=== PATIENT | male | born 1995 | race African-American/Black ===

== ENCOUNTER 2019-11-16 13:29 | Outpatient (CLI) | payer OTHER, SELFPAY ==
--- NOTE | ~2019-11-16 | US_ITS ---
EXAMINATION: US right upper quadrant DATE: 11/16/2019 15:01 INDICATION: Abnormal liver function tests. TECHNIQUE: Multiple grayscale and Doppler ultrasound images of the abdomen were obtained. COMPARISON: None FINDINGS: The visualized portions of the head and body of the pancreas are normal. There is diffuse h epatic steatosis. No liver surface nodularity. There is normal flow in main portal vein. The gallblad paul is normal in size. No gallstones or gallbladder wall thickening. There was no sonographic Lowery sign. The common duct is normal and measures 3 mm. IMPRESSION: 1. Diffuse hepatic steatosis. Reviewed, dictated and finalized at location A.
--- NOTE | ~2019-11-16 | XR_ITS ---
EXAMINATION: XR chest 2V DATE: 11/16/2019 14:00 INDICATION: Tobacco use. TECHNIQUE: Frontal and lateral views of the chest were obtained. COMPARISON: None. FINDINGS: The chest demonstrates clear lungs without pneumonia, pleural effusion, or pneumothorax. Th e heart size is normal. IMPRESSION: 1. No acute cardiopulmonary disease. Reviewed, dictated and finalized at location A.
== END 2019-11-16 13:30 | disposition home or self-care (01) ==
LOC: ANHIMG 13:34
PROVIDERS: PCP Emergency Medicine; Visit Provider Emergency Medicine
DX: R94.5 Abnormal results of liver function studies (principal); Z72.0 Tobacco use
CPT/HCPCS: 71046; 76705

== ENCOUNTER 2022-03-03 10:54 | Outpatient (CLI) | payer OTHER, SELFPAY ==
--- NOTE | ~2022-03-03 | XR_ITS ---
EXAM: XR soft tissue neck DATE: 03/03/2022 11:30 HISTORY: LOWER THROAT FEEL SOMETHING STUCK LEFT SIDE BLACKMAN APPLE . COMPARISON: None available. FINDINGS: Visualized cervical spine normal, without prevertebral soft tissue swelling. Airway is pat ent. No radiopaque foreign body. Normal hilar bone and thyroid cartilage. Normal epiglottis. IMPRESSION: Normal neck soft tissue radiograph findings. Reviewed, dictated and finalized at location K.
[2022-03-03 12:24] LABS: Hematocrit 44.2 % (42.0-52.0); Hemoglobin 14.8 g/dL (14.0-18.0); Mean Corpuscular HGB Conc 33.5 g/dl (32-36); Mean Corpuscular Hemoglobin 30.6 pg (26-34); Mean Corpuscular Volume 91.5 fl (80-100); Mean Platelet Volume 10.8 fl (7.4-10.4); Platelet Count Result 175 k/mm3 (150-375); Red Blood Count 4.83 M/mm3 (4.6-6.20); Red Cell Distribution Width 13.2 % (11.5-14.5); White Blood Count 5.5 K/mm3 (4.5-10.0)
[2022-03-03 12:43] LABS: Alanine Aminotransferase 114 U/L (6-50); Alkaline Phosphatase 57 U/L (38-126); Anion Gap 13 mmol/L (8-16); Aspartate Amino Transferase 51 U/L (17-59); Bilirubin,Total 0.4 mg/dL (0.2-1.3); Blood Urea Nitrogen 12 mg/dL (9-20); Calcium 8.7 mg/dL (8.4-10.2); Carbon Dioxide 20 mmol/L (22-30); Chloride 107 mmol/L (98-107); Cholesterol 170 mg/dL (0-200); Estimated Glomerular Filt Rate > 60; Glucose 117 mg/dL (65-110); HDL Direct 42 mg/dL; Potassium 4.2 mmol/L (3.4-5.0); Sodium 140 mmol/L (137-145); Triglycerides 59 mg/dL (<150)
[2022-03-03 12:54] LABS: LDL Cholesterol Direct 109 mg/dL
[2022-03-03 13:03] LABS: Hemoglobin A1C 5.5 % (<5.7)
[2022-03-03 13:26] LABS: Free T4 Free Thyroxine 1.03 ng/mL (0.78-2.19); Vitamin D 25 Hydroxy 33.7 ng/mL
[2022-03-03 13:38] LABS: Hepatitis B Surface Antigen Negative (Negative)
[2022-03-03 13:44] LABS: HAV RESULT Negative (Negative); Hepatitis B Core IgM Result Negative (Negative)
[2022-03-03 13:56] LABS: Hepatitis C Virus Antibody Negative (Negative)
[2022-03-03 14:02] LABS: Microalbumin Urine Random < 6.0 mg/L (0-16.7)
[2022-03-03 14:03] LABS: MALB Creatinine Ratio < 3.9 mg/g (0-30)
== END 2022-03-03 10:55 | disposition home or self-care (01) ==
PROVIDERS: PCP Emergency Medicine; Visit Provider Emergency Medicine
DX: J02.9 Acute pharyngitis, unspecified (principal); R09.89 Other specified symptoms and signs involving the circulatory and respiratory systems; F32.9 Major depressive disorder, single episode, unspecified; K76.0 Fatty (change of) liver, not elsewhere classified; E66.9 Obesity, unspecified; E78.5 Hyperlipidemia, unspecified; Z00.00 Encounter for general adult medical examination without abnormal findings
CPT/HCPCS: 36415; 70360; 80053; 80061; 80074; 82043; 82306; 82785; 83036; 84439; 84443; 85027; 86003

== ENCOUNTER 2022-03-20 11:05 | Outpatient (CLI) | payer OTHER, SELFPAY ==
--- NOTE | ~2022-03-20 | US_ITS ---
US abdomen limited INDICATION: Fatty liver. PROCEDURE: Realtime right upper abdominal ultrasound. COMPARISON: No prior studies for comparison. FINDINGS: The pancreas is normal without focal mass or pancreatic ductal dilation. Liver echotexture is increased, consistent with fatty infiltration. There is normal directional flow in the portal ve in. The gallbladder is normal without stones, gallbladder wall thickening or pericholecystic fluid. Comm on bile duct measures 3 mm. No sonographic Lowery's sign. IMPRESSION: 1: Hepatic steatosis. Reviewed, dictated and finalized at location A. IMPRESSION: 1: Hepatic steatosis.
== END 2022-03-20 11:06 | disposition home or self-care (01) ==
PROVIDERS: PCP Emergency Medicine; Visit Provider Emergency Medicine
DX: K76.0 Fatty (change of) liver, not elsewhere classified (principal)
CPT/HCPCS: 76705

== ENCOUNTER 2025-05-16 20:24 | Inpatient (IN) | payer SELFPAY ==
--- NOTE | ~2025-05-16 | CT_ITS ---
CTA chest PE abdomen pel HISTORY:tachycardia, tachypnea . COMPARISON: None. TECHNIQUE: Following the noncontrasted claims account manager, axial images of the thorax were obtained following infusion of 100 cc of Isovue 370. Post-processing on an independent workstation was performed to reconstruct MIP images for evaluation of the thoracic vasculature. FINDINGS: Evaluation for pulmonary emboli are limited due to poor timing bolus. There is no aortic dissection, thoracic aneurysm or pericardial fluid. The lung parenchyma is clear. No pleural effusion or pneumothorax is noted. There is no axillary, mediastinal or hilar adenopathy. There is thickening of the esophageal wall. Reflux is noted. Review of bone windows demonstrates no osteoblastic or lytic lesions. IMPRESSION: There is aortic dissection, pericardial fluid or thoracic aneurysm. No acute lung findings. Evaluation for pulmonary emboli are limited due to inadequate opacification of the pulmonary arteries. CT abdomen pel INDICATION:tachycardia, tachypnea . COMPARISON: None. TECHNIQUE: Axial images of the abdomen and pelvis were obtained following infusion of 100 mL Isovue 370. Dose optimization technique was utilized. FINDINGS: Fatty infiltration of the liver is noted. 1.3 cm lesion in the right hepatic lobe. The gallbladder is unremarkable. The pancreas and spleen are normal in appearance. The adrenal glands are symmetric in size. The kidneys demonstrate symmetric uptake and excretion of contrast. No cystic mass is evident. There is no solid mass. There is no hydronephrosis. The stomach and bowel loops are unremarkable. The appendix is normal in appearance. The bladder and rectum are normal. No free intraperitoneal fluid or air is evident. There is no significant retroperitoneal lymphadenopathy. The aorta, visceral vessels and renal arteries demonstrate normal caliber and patency. The lower thoracic and lumbar vertebrae are in normal alignment. IMPRESSION: Indeterminate 1.3 cm lesion in the right hepatic lobe. Follow-up CT using hepatic protocol is recommended. Hepatic steatosis. All CT scans at this facility are performed using low dose modulation techniques as appropriate to perform exam including the following: automated exposure control; use of iterative reconstruction technique; adjustment of the mA and/or kV according to patient size (this includes techniques or standardized protocols for targeted exams where dose is matched to indication/reason for exam). Reviewed, dictated and finalized at location S. MOLOGY TECHNICAL OFFICER IMPRESSION: There is aortic dissection, pericardial fluid or thoracic aneurysm. No acute lung findings. Evaluation for pulmonary emboli are limited due to inadequate opacification of the pulmonary arteries. CT abdomen pel INDICATION:tachycardia, tachypnea . COMPARISON: None. TECHNIQUE: Axial images of the abdomen and pelvis were obtained following infu wes of 100 mL Isovue 370. Dose optimization technique was utilized. FINDINGS: Fatty infiltration of the liver is noted. 1.3 cm lesion in the right hepatic lo be. The gallbladder is unremarkable. The pancreas and spleen are normal in appe arance. The adrenal glands are symmetric in size. The kidneys demonstrate symmetric uptake and excretion of contrast. No cystic m ass is evident. There is no solid mass. There is no hydronephrosis. The stomach and bowel loops are unremarkable. The appendix is normal in appeara nce. The bladder and rectum are normal. No free intraperitoneal fluid or air is evid ent. There is no significant retroperitoneal lymphadenopathy. The aorta, visceral vessels and renal arteries demonstrate normal caliber and p atency. The lower thoracic and lumbar vertebrae are in normal alignment. IMPRESSION: Indeterminate 1.3 cm lesion in the right hepatic lobe. Follow-up CT using hepat ic protocol is recommended. Hepatic steatosis. All CT scans at this facility are performed using low dose modulation techniqu es as appropriate to perform exam including the following: automated exposure c ontrol; use of iterative reconstruction technique; adjustment of the mA and/or kV according to patient size (this includes techniques or standardized protocol s for targeted exams where dose is matched to indication/reason for exam).
--- OUTSIDE RECORDS SUMMARY | 2025-05-16 20:26 | XMS_ITS | Clinical Summary ---
Author Organization [facility] [employer] Address [address] [place] [address] Care Team Providers Care Miller Head Wet Process Name Role Phone Manju Ortiz MD Primary Care Provider [phone] Source Comments [facility] [employer],non-owned Affiliates and Associated Physician Practices is amultiple site organization consisting of ambulatory clinics and hospital sitesin [place], [place], [place] and [place]. This disclosure is being madepursuant to the Care Everywhere program and may not contain all information available regarding this patient. Last updated 18.[facility] [employer] Allergies No known active allergies Medications * Be aware that medications may not be up to date on this document. Alwaysverify current medications with the patient. vitamin D, ergocalciferol, (Drisdol) 1.25 MG (24852 UT) capsule Take 1 (one) capsule by mouth every 7 days 12/30/2021 Active fluticasone propionate (Flonase) 50 MCG/ACT nasal spray [place] 1 (one) spray into each nostril 2 times daily 04/05/2022 Active mupirocin (Bactroban) 2 % ointment Apply 22 g to affected area 3 times daily 03/06/2022 Active olopatadine (Patanase) 0.6 % nasal solution [place] 2 (two) sprays into each nostril 2 times daily 04/05/2022 Active omeprazole (PriLOSEC) 20 MG capsule Take 1 (one) capsule by mouth once daily as needed 04/06/2022 Active Family History Medical History Relation Name Comments Anesthesia Reaction Neg Hx Bleeding Disorders Neg Hx Childhood Hearing Disorder Neg Hx Social History Tobacco Use Types Packs/Day Years Used Date Smoking Tobacco: Never Assessed Sex and Gender Information Value Date Recorded Sex Assigned at Not on file Legal Sex 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 Gender Identity Not on file Sexual Orientation Not on file Last Filed Vital Signs Vital Sign Reading Time Taken Comments Blood Pressure - - Pulse - - Temperature - - Respiratory Rate - - Oxygen Saturation - - Inhaled Oxygen Concentration - - Weight 91.9 kg (202 lb 9.6 oz) 05/26/2011 8:45 A M OPERATIONS RECRUITER Height 175 cm (5' 8.9) 05/26/2011 8:45 AM OPERATIONS RECRUITER Body Mass Index 30.01 05/26/2011 8:45 AM OPERATIONS RECRUITER Plan of Treatment Health Maintenance Due Date Last Done Comments HIV SCREENING 2011 HEPATITIS C SCREENING 04/28/2014 DTAP/TDAP/TD VACCINES (1 - Tdap) 2015 HEPATITIS B VACCINE (1 of 3 - 19+ 3-dose series) 2015 HPV VACCINE (1 - 3-dose SCDM series) 2023 DEPRESSION SCREENING 06/14/2024 COVID-19 VACCINE (1 - 2024-2 6 season) 2025 INFLUENZA VACCINE (#1) 2025 ZOSTER VACCINE (1 of 2) 2046 HIB VACCINE Aged Out No longer eligi ble based on patient's age to complete this topic MENINGOCOCCAL (Group B) VACC INE SHARED DECISION-MAKING Aged Out No longer eligibl e based on patient's age to complete this topic MENINGOCOCCAL GROUPS A/C/Y/W VACCINE Aged Out No longer eligible b ased on patient's age to complete this topic PNEUMOCOCCAL VACCINE Aged Out No long er eligible based on patient's age to complete this topic Insurance [facility] Care Teams Miller Head Wet Process Relationship Specialty Start Date End Date Manju Ortiz MD [address] [place] [address] PCP - General 05/23/11
[2025-05-16 20:30] VITALS: BP 149/97; PULSE 121; RESP 24; TEMP 36.6; O2SAT 96
--- NOTE | 2025-05-16 20:50 | ECG_ITS ---
Test Date: 2025-05-16 21:28:57 Measurements Intervals [place] Rate: 100 P: 58 PA: 121 QRS: 22 QRSD: 121 T: 197 QT: 358 QTc: 462 Interpretive Statements SINUS TACHYCARDIA POSSIBLE LEFT ATRIAL ENLARGEMENT LEFT VENTRICULAR HYPERTROPHY AND ST-T CHANGE ST-T WAVE ABNORMALITY IN ANTEROLAT/INF LEADS- CONSIDER ISCHEMIA BASELINE ARTIFACT- III, AVL ABNORMAL ECG No previous ECG available for comparison Electronically Signed On 05-17-2025 06:14:50 TELEVISION REPAIRER by Royce Velasquez D.O.
--- NOTE | 2025-05-16 20:50 | ED_ITS ---
HPI - Nausea/Vomiting/Diarrhea General Chief complaint: Nausea/Vomiting/Diarrhea Stated complaint: Vomiting the last 3 days Time Seen by Provider: 05/16/25 20:42 Source: patient Mode of arrival: ambulatory Limitations: no limitations History of Present Illness HPI Narrative: Patient is a 30-year-old male presents to the emergency department complaining of nausea and vomiting. Patient notes that this started on Wednesday evening, has been unable to keep anything down by mouth since then. Patient notes his last bowel movement was also Wednesday. Patient denies any diarrhea. Patient denies anyone having similar symptoms around him. Patient denies any history of this in the past. Patient denies any blood in the vomit. Patient admits to some slight cramping discomfort in the epigastric region when he vomits and for short duration after med that resolves, comes and goes with the vomiting. Patient denies any known fevers but did note that he felt hot lately. Patient denies any dysuria. Patient denies any chest pain or difficulty breathing. Patient denies any marijuana use. Denies any recent travel or hospitalizations. Related Data Allergies Allergy/AdvReac Type Severity Reaction Status Date / Time No Known Allergies Allergy Verified 05/16/25 20:25 Review of Systems 2 Review of Systems: A 10 system review of systems was completed on the patient and is negative except for what is stated in the HPI. Nursing and ancillary documentation was reviewed. Exam 2 Narrative: CONST: No acute distress. Well nourished. Obese. HENMT: Head is normocephalic and atraumatic. Dry mucous membranes. No posterior oropharynx erythema. EYES: No scleral icterus. No conjunctival injection or pallor. PERRL. NECK: No meningeal signs. RESP: Able to speak in full sentences. Tachypnea. CTAB. CARDIO: Tachycardic rate. Regular rhythm. 2+ DP and radial pulses bilaterally. GI: Nondistended. No tenderness to palpation. Soft. : No CVA tenderness to palpation. SKIN: No rashes or lesions noted on exposed skin. NEURO: Oriented x3. Moves all extremities. EXTREM/MSK/BACK: No pedal edema. PSYCH: Normal affect. Course Vital Signs Vital signs: Vital Signs Temperature 98 F 05/16/25 20:30 Pulse Rate 121 H 05/16/25 20:30 Respiratory Rate 24 H 05/16/25 20:30 Blood Pressure 149/97 H 05/16/25 20:30 Pulse Oximetry 96 05/16/25 20:30 Oxygen Delivery Room Air 05/16/25 20:30 Temperature 98 F 05/16/25 20:30 Pulse Rate 121 H 05/16/25 20:30 Respiratory Rate 24 H 05/16/25 20:30 Blood Pressure 149/97 H 05/16/25 20:30 Pulse Oximetry 96 05/16/25 20:30 Oxygen Delivery Room Air 05/16/25 20:30 [facility] Narrative Medical decision making narrative: Patient presents with the above complaint. Initial vitals are remarkable for tachycardia, tachypnea, blood pressure 149/97. Physical examination as noted above. Plan discussed: laboratory analysis, EKG. Patient ordered IVF, Zofran, Protonix. Patient denies seeing a doctor on a regular basis, denies any history of diabetes that he is aware of. I have evaluated and discussed social determinants of health with the patient that could potentially impact subsequent diagnosis and treatment plans. I spoke with the automotive artist on-call Dr. Espinal who agrees with plan of care, will see the patient in consultation, ICU admission, wants the patient to receive 3 total L of IV fluid bolus. I spoke with the hospitalist on-call who has accepted the patient for admission. The patient was evaluated by myself. History is obtained from patient who is an independent historian and physical exam was performed. External medical records were reviewed at this time. IV was established and pertinent laboratory and radiographic tests were ordered. I spoke with the radiologist who interpreted the patient's CT regarding the impression stating that there is aortic dissection and pericardial effusion and a thoracic aortic aneurysm, it was the opposite in his findings, he notes that he will change this as there is no dissection or pericardial effusion or thoracic aortic aneurysm. Differential Diagnosis Differential Diagnosis: Gastritis, gastroparesis, peptic ulcer disease, GERD, sepsis, metabolic derangement, electrolyte derangement, bowel obstruction, food-borne illness, viral syndrome, dehydration, hepatobiliary pathology. Lab Data [facility] Lab Attestation statement: I personally reviewed the patient's lab results. Lab results narrative: CBC is without any significant abnormalities. Comprehensive metabolic panel reveals a sodium 128, bicarb less than 5, glucose is 622, ALT of 83. Lipase is 1016. Beta hydroxybutyrate is 5.16. Troponin is less than 0.012. Magnesium is 2.3. Phosphorus is 3.2. Lactic acid is 2.0. Hemoglobin A1c is 10. COVID and influenza and RSV testing are negative. Urinalysis reveals a specific gravity of 1.041, 1+ protein, 3+ glucose, 4+ ketones, 1+ blood. UDS is negative. Ethyl alcohol level is less than 10. 05/16/25 20:51 05/16/25 20:51 Labs: Lab Results 05/16/25 05/16/25 05/16/25 Range/Units 20:50 20:51 21:11 WBC 7.6 (4.5-10.0) K/mm3 RBC 5.56 (4.6-6.20) M/mm3 Hgb 16.9 (14.0-18.0) g/dL Hct 49.7 (42.0-52.0) % MCV 89.4 (80-100) fl MCH 30.4 (26-34) pg MCHC 34.0 (32-36) g/dl RDW 14.0 (11.5-14.5) % Plt Count 195 (150-375) k/mm3 MPV 12.2 H (7.4-10.4) fl Immature Gran % (Auto) 0.7 H (0-0.5) % Neut % (Auto) 71.0 (45.5-73.1) % Lymph % (Auto) 15.1 L (18.3-44.2) % Whiteside % (Auto) 12.7 H (2.6-8.5) % Eos % (Auto) 0.0 (0-4.4) % Baso % (Auto) 0.5 (0.2-1.2) % Lymph # (Auto) 1.15 (0.9-3.2) K/mm3 [place] # (Auto) 1.0 H (0.1-0.6) K/mm3 Eos # (Auto) 0.0 (0-0.3) K/mm3 Baso # (Auto) 0.0 (0.0-0.1) K/mm3 Abs Immat Gran (auto) 0.05 H (0.00-0.031) K/mm3 Absolute Neuts (auto) 5.4 (1.3-6.7) K/mm3 Absolute Nucleated RBC 0.000 (0.0-0.012) K/mm3 Nucleated RBC % 0.0 (0.0-0.2) % Sodium 128 L (137-145) mmol/L Potassium 4.5 (3.4-5.0) mmol/L Chloride 101 (98-107) mmol/L Carbon Dioxide < 5 L (22-30) mmol/L Anion Gap (4-12) mmol/L BUN 14 (9-20) mg/dL Creatinine 1.28 (0.7-1.3) mg/dL Estim Creat Clear Calc 106 ml/min Estimated GFR > 60 (59 - ) Glucose 622 H* (65-110) mg/dL POC Capillary Glucose (65-105) mg/dl Hemoglobin A1c 10.0 H (<5.7) % Serum Osmolality Lactic Acid 2.0 (0.7-2.0) mmol/L Calcium 9.3 (8.4-10.2) mg/dL Phosphorus 3.2 (2.5-4.5) mg/dL Magnesium 2.3 (1.6-2.3) mg/dL Total Bilirubin 1.2 (0.2-1.3) mg/dL AST 37 (17-59) U/L ALT 83 H (6-50) U/L Alkaline Phosphatase 110 (38-126) U/L Troponin I < 0.012 (0.000-0.034) ng/mL Total Protein 8.1 (6.3-8.2) g/dL Albumin 5.0 (3.5-5.1) g/dL Lipase 1016 H (23-300) U/L Beta-Hydroxybutyrate/Acetoacetate 5.16 H (0.02-0.27) mmol/L TSH (Reflex) 2.160 (0.465-4.68) uIU/mL Urine Color (Yellow) Urine Appearance (Clear) Urine pH (5.0-9.0) Ur Specific [place] (1.001-1.035) Urine Protein (Negative) mg/dL Urine Glucose (UA) (Negative) mg/dL Urine Ketones (Negative) mg/dL Ur Blood (Man) (Negative) Urine Nitrate (Negative) Urine Bilirubin (Negative) Urine Urobilinogen (<2.0) mg/dL Leukocyte Esterase Rfl (Negative) MIGUEL A/UL Urine RBC (0-2) /hpf Urine WBC (0-3) /hpf Ur Squamous Epith Cells (Few) /hpf Urine Bacteria /hpf Urine Casts Nasal MRSA (PCR) Urine Opiates Screen (Negative) Urine Methadone Screen (Negative) Ur Barbiturates Screen (Negative) Ur Phencyclidine Scrn (Negative) Ur Amphetamine Screen (Negative) U Benzodiazepines Scrn (Negative) Urine Cocaine Screen (Negative) U Cannabinoids Screen (Negative) Ethyl Alcohol < 10 (<10) mg/dL Influenza A (RT-PCR) Negative (Negative) Influenza B (RT-PCR) Negative (Negative) RSV (RT-PCR) Negative (Negative) SARS-CoV-2 RNA (RT-PCR) Negative (Negative) 05/16/25 05/16/25 05/16/25 Range/Units 22:19 22:19 22:23 WBC (4.5-10.0) K/mm3 RBC (4.6-6.20) M/mm3 Hgb (14.0-18.0) g/dL Hct (42.0-52.0) % MCV (80-100) fl MCH (26-34) pg MCHC (32-36) g/dl RDW (11.5-14.5) % Plt Count (150-375) k/mm3 MPV (7.4-10.4) fl Immature Gran % (Auto) (0-0.5) % Neut % (Auto) (45.5-73.1) % Lymph % (Auto) (18.3-44.2) % [place]iteside % (Auto) (2.6-8.5) % Eos % (Auto) (0-4.4) % Baso % (Auto) (0.2-1.2) % Lymph # (Auto) (0.9-3.2) K/mm3 [place] # (Auto) (0.1-0.6) K/mm3 Eos # (Auto) (0-0.3) K/mm3 Baso # (Auto) (0.0-0.1) K/mm3 Abs Immat Gran (auto) (0.00-0.031) K/mm3 Absolute Neuts (auto) (1.3-6.7) K/mm3 Absolute Nucleated RBC (0.0-0.012) K/mm3 Nucleated RBC % (0.0-0.2) % Sodium (137-145) mmol/L Potassium (3.4-5.0) mmol/L Chloride (98-107) mmol/L Carbon Dioxide (22-30) mmol/L Anion Gap (4-12) mmol/L BUN (9-20) mg/dL Creatinine (0.7-1.3) mg/dL Estim Creat Clear Calc ml/min Estimated GFR (59 - ) Glucose (65-110) mg/dL POC Capillary Glucose (65-105) mg/dl Hemoglobin A1c (<5.7) % Serum Osmolality Cancelled Pending Lactic Acid (0.7-2.0) mmol/L Calcium (8.4-10.2) mg/dL Phosphorus (2.5-4.5) mg/dL Magnesium (1.6-2.3) mg/dL Total Bilirubin (0.2-1.3) mg/dL AST (17-59) U/L ALT (6-50) U/L Alkaline Phosphatase (38-126) U/L Troponin I (0.000-0.034) ng/mL Total Protein (6.3-8.2) g/dL Albumin (3.5-5.1) g/dL Lipase (23-300) U/L Beta-Hydroxybutyrate/Acetoacetate (0.02-0.27) mmol/L TSH (Reflex) (0.465-4.68) uIU/mL Urine Color Yellow (Yellow) Urine Appearance Clear (Clear) Urine pH 5.5 (5.0-9.0) Ur Specific [place] 1.041 H (1.001-1.035) Urine Protein 1+ H (Negative) mg/dL Urine Glucose (UA) 3+ H (Negative) mg/dL Urine Ketones 4+ H (Negative) mg/dL Ur Blood (Man) 1+ H (Negative) Urine Nitrate Negative (Negative) Urine Bilirubin Negative (Negative) Urine Urobilinogen 0.2 (<2.0) mg/dL Leukocyte Esterase Rfl Negative (Negative) MIGUEL A/UL Urine RBC 0-2 (0-2) /hpf Urine WBC 0-5 (0-3) /hpf Ur Squamous Epith Cells None seen (Few) /hpf Urine Bacteria None seen /hpf Urine Casts 3-5 Nasal MRSA (PCR) Pending Urine Opiates Screen Negative (Negative) Urine Methadone Screen Negative (Negative) Ur Barbiturates Screen Negative (Negative) Ur Phencyclidine Scrn Negative (Negative) Ur Amphetamine Screen Negative (Negative) U Benzodiazepines Scrn Negative (Negative) Urine Cocaine Screen Negative (Negative) U Cannabinoids Screen Negative (Negative) Ethyl Alcohol (<10) mg/dL Influenza A (RT-PCR) (Negative) Influenza B (RT-PCR) (Negative) RSV (RT-PCR) (Negative) SARS-CoV-2 RNA (RT-PCR) (Negative) 05/16/25 Range/Units 22:50 WBC (4.5-10.0) K/mm3 RBC (4.6-6.20) M/mm3 Hgb (14.0-18.0) g/dL Hct (42.0-52.0) % MCV (80-100) fl MCH (26-34) pg MCHC (32-36) g/dl RDW (11.5-14.5) % Plt Count (150-375) k/mm3 MPV (7.4-10.4) fl Immature Gran % (Auto) (0-0.5) % Neut % (Auto) (45.5-73.1) % Lymph % (Auto) (18.3-44.2) % [place] % (Auto) (2.6-8.5) % Eos % (Auto) (0-4.4) % Baso % (Auto) (0.2-1.2) % Lymph # (Auto) (0.9-3.2) K/mm3 [place] # (Auto) (0.1-0.6) K/mm3 Eos # (Auto) (0-0.3) K/mm3 Baso # (Auto) (0.0-0.1) K/mm3 Abs Immat Gran (auto) (0.00-0.031) K/mm3 Absolute Neuts (auto) (1.3-6.7) K/mm3 Absolute Nucleated RBC (0.0-0.012) K/mm3 Nucleated RBC % (0.0-0.2) % Sodium (137-145) mmol/L Potassium (3.4-5.0) mmol/L Chloride (98-107) mmol/L Carbon Dioxide (22-30) mmol/L Anion Gap (4-12) mmol/L BUN (9-20) mg/dL Creatinine (0.7-1.3) mg/dL Estim Creat Clear Calc ml/min Estimated GFR (59 - ) Glucose (65-110) mg/dL POC Capillary Glucose 446 H (65-105) mg/dl Hemoglobin A1c (<5.7) % Serum Osmolality Lactic Acid (0.7-2.0) mmol/L Calcium (8.4-10.2) mg/dL Phosphorus (2.5-4.5) mg/dL Magnesium (1.6-2.3) mg/dL Total Bilirubin (0.2-1.3) mg/dL AST (17-59) U/L ALT (6-50) U/L Alkaline Phosphatase (38-126) U/L Troponin I (0.000-0.034) ng/mL Total Protein (6.3-8.2) g/dL Albumin (3.5-5.1) g/dL Lipase (23-300) U/L Beta-Hydroxybutyrate/Acetoacetate (0.02-0.27) mmol/L TSH (Reflex) (0.465-4.68) uIU/mL Urine Color (Yellow) Urine Appearance (Clear) Urine pH (5.0-9.0) Ur Specific [place] (1.001-1.035) Urine Protein (Negative) mg/dL Urine Glucose (UA) (Negative) mg/dL Urine Ketones (Negative) mg/dL Ur Blood (Man) (Negative) Urine Nitrate (Negative) Urine Bilirubin (Negative) Urine Urobilinogen (<2.0) mg/dL Leukocyte Esterase Rfl (Negative) MIGUEL A/UL Urine RBC (0-2) /hpf Urine WBC (0-3) /hpf Ur Squamous Epith Cells (Few) /hpf Urine Bacteria /hpf Urine Casts Nasal MRSA (PCR) Urine Opiates Screen (Negative) Urine Methadone Screen (Negative) Ur Barbiturates Screen (Negative) Ur Phencyclidine Scrn (Negative) Ur Amphetamine Screen (Negative) U Benzodiazepines Scrn (Negative) Urine Cocaine Screen (Negative) U Cannabinoids Screen (Negative) Ethyl Alcohol (<10) mg/dL Influenza A (RT-PCR) (Negative) Influenza B (RT-PCR) (Negative) RSV (RT-PCR) (Negative) SARS-CoV-2 RNA (RT-PCR) (Negative) ABG Data ABG results: 05/16/25 22:19 VBG pH 7.167 L* VBG pCO2 32.4 L VBG pO2 31.6 L VBG HCO3 11.5 L O2 Delivery Device Not Reportable O2 Liters/Min Not Reportable FiO2 21 Interpretation: VBG obtained revealing a pH is 7.167, pCO2 32.4, bicarbonate of 11.5; consistent with a metabolic acidosis. Imaging Data Radiologist's impression: ITS Impressions Chest/Abdomen/Pelvis CTA 05/16/25 21:47 IMPRESSION: There is aortic dissection, pericardial fluid or thoracic aneurysm. No acute lung findings. Evaluation for pulmonary emboli are limited due to inadequate opacification of the pulmonary arteries. CT abdomen pel INDICATION:tachycardia, tachypnea . COMPARISON: None. TECHNIQUE: Axial images of the abdomen and pelvis were obtained following infusion of 100 mL Isovue 370. Dose optimization technique was utilized. FINDINGS: Fatty infiltration of the liver is noted. 1.3 cm lesion in the right hepatic lobe. The gallbladder is unremarkable. The pancreas and spleen are normal in appearance. The adrenal glands are symmetric in size. The kidneys demonstrate symmetric uptake and excretion of contrast. No cystic mass is evident. There is no solid mass. There is no hydronephrosis. The stomach and bowel loops are unremarkable. The appendix is normal in appearance. The bladder and rectum are normal. No free intraperitoneal fluid or air is evident. There is no significant retroperitoneal lymphadenopathy. The aorta, visceral vessels and renal arteries demonstrate normal caliber and patency. The lower thoracic and lumbar vertebrae are in normal alignment. IMPRESSION: Indeterminate 1.3 cm lesion in the right hepatic lobe. Follow-up CT using hepatic protocol is recommended. Hepatic steatosis. All CT scans at this facility are performed using low dose modulation techniques as appropriate to perform exam including the following: automated exposure control; use of iterative reconstruction technique; adjustment of the mA and/or kV according to patient size (this includes techniques or standardized protocols for targeted exams where dose is matched to indication/reason for exam). ECG Data EKG #1: Attestation: I personally reviewed and interpreted this ECG as follows: ECG completion date: 05/16/25 ECG completion time: 21:28 Interpretation: Rate of 100, rhythm is sinus tachycardia, possible left atrial enlargement, left ventricular hypertrophy, T-wave inversions present in leads 1, 2, aVL, AVF, V4, V5, V6; no ST elevations or depressions. Critical Care Time Critical Care Time Critical Care Time: Yes Indication: Diabetic Ketoacidosis Time Type: Intermittent Initial evaluation, discuss w/ involved parties, attempting to gather old records: 15 minutes Documenting medical record: 15 minutes Review of results (EKG's, labs, imaging): 15 minutes Serial repeat bedside evaluation: 20 minutes Discussing case with multiple memebers of the care team and consultants: 10 minutes Total Critical Care Time: 75 Discharge Plan Discharge Clinical Impression: DKA (diabetic ketoacidosis), Pancreatitis, Pseudohyponatremia, Metabolic acidosis, increased anion gap, Lesion of right lobe of liver, Fatty liver Patient Disposition: Still a Patient Condition: Critical Patient Language: Hebrew Follow-up/Referrals: Francesco Bui MD [Physician, Family Practice] Time of Disposition: 22:19
[2025-05-16 20:57] LABS: Hematocrit 49.7 % (42.0-52.0); Hemoglobin 16.9 g/dL (14.0-18.0); Immature Granulocyte Percent A 0.7 % (0-0.5); Lymphocytes Absolute Auto 1.15 K/mm3 (0.9-3.2); Mean Corpuscular HGB Conc 34.0 g/dl (32-36); Mean Corpuscular Hemoglobin 30.4 pg (26-34); Mean Corpuscular Volume 89.4 fl (80-100); Nucleated Red Blood Cells Absolute Auto 0.000 K/mm3 (0.0-0.012); Nucleated Red Blood Cells Perc 0.0 % (0.0-0.2); Platelet Count Result 195 k/mm3 (150-375); Red Blood Count 5.56 M/mm3 (4.6-6.20); White Blood Count 7.6 K/mm3 (4.5-10.0)
[2025-05-16] MEDS: SODIUM CHLORIDE 0.9% IV 1,000 ML 999 ML IV CONT ×3 (21:00→22:30)
[2025-05-16] MEDS: PANTOPRAZOLE SODIUM IV 40 MG VIAL IV PUSH (21:01)
[2025-05-16] MEDS: ONDANSETRON INJ 4 MG/2 ML VIAL IV PUSH (21:01)
[2025-05-16 21:10] LABS: Alanine Aminotransferase 83 U/L (6-50); Albumin Level 5.0 g/dL (3.5-5.1); Alkaline Phosphatase 110 U/L (38-126); Aspartate Amino Transferase 37 U/L (17-59); Bilirubin,Total 1.2 mg/dL (0.2-1.3); Blood Urea Nitrogen 14 mg/dL (9-20); Calcium 9.3 mg/dL (8.4-10.2); Carbon Dioxide < 5 mmol/L (22-30); Chloride 101 mmol/L (98-107); Estimated CRCL calculation 106 ml/min; Estimated Glomerular Filt Rate > 60; Glucose 622 mg/dL (65-110); Lipase 1016 U/L (23-300); Magnesium 2.3 mg/dL (1.6-2.3); Potassium 4.5 mmol/L (3.4-5.0); Sodium 128 mmol/L (137-145); Total Protein 8.1 g/dL (6.3-8.2)
--- OUTSIDE RECORDS SUMMARY | 2025-05-16 21:32 | XMS_ITS | Encounter Summary ---
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 Gender Identity Not on file Sexual Orientation Not on file documented as of this encounter Plan of Treatment Not on file documented as of this encounter Procedures Procedure Name Priority Date/Time Associated Diagnosis Comments PULMONARY - RESULT SCAN 04/12/2020 CARDIOLOGY DOCUMENT SCAN 09/14/2019 documented in this encounter Results * PULMONARY - RESULT SCAN (04/12/2020) Anatomical Region Laterality Modality Other us Provider Scanning Final Result * SCAN - CARDIOLOGY (09/14/2019) Anatomical Region Laterality Modality Other us Provider Scanning CV CARDIAC SERVICES PROCEDURES Final Result documented in this encounter Visit Diagnoses Not on filedocumented in this encounter Additional Health Concerns Infection Onset Date Last Indicated Resolved Time COVID: Suspected 02/28/2022 02/28/2022 02/28/2022 10:12 PM CDT COVID: Suspected 07/21/2024 07/21/2024 07/21/2024 4:15 PM 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
--- OUTSIDE RECORDS SUMMARY | 2025-05-16 21:32 | XMS_ITS | Clinical Summary ---
Author Organization [facility] Address [address] [place] [address] Care Team Providers Care Port Patrol Officer Name Role Phone None, Provider Primary Care Provider Unavaila ble Allergies No known active allergies Medications No known medications Social History Tobacco Use Types Packs/Day Years Used Date Smoking Tobacco: Every Day Smokeless Tobacco: Never Alcohol Use Standard Drinks/Week Comments Yes 0 (1 standard drink = 0.6 oz pur e alcohol) Sex and Gender Information Value Date Recorded Sex Assigned at Not on file Legal Sex Male 12:26 PM COOK FISH EGGS Gender Identity Not on file Sexual Orientation Not on file Last Filed Vital Signs Vital Sign Reading Time Taken Comments Blood Pressure 136/80 04/25/2019 12:30 PM COOK FISH EGGS Pulse 67 04/25/2019 12:30 PM COOK FISH EGGS Temperature 36.9 C (98.4 F) 04/25/2019 12:30 PM COOK FISH EGGS Respiratory Rate 16 04/25/2019 12:3 0 PM COOK FISH EGGS Oxygen Saturation 98% 04/25/2019 12: 30 PM COOK FISH EGGS Inhaled Oxygen Concentration - - Weight 128.5 kg (283 lb 3.2 oz) 019 12:30 PM COOK FISH EGGS Height 177.8 cm (5' 10) 04/25/2019 12: 30 PM COOK FISH EGGS Body Mass Index 40.63 04/25/2019 12:30 PM COOK FISH EGGS Plan of Treatment Health Maintenance Due Date Last Done Comments Annual Physical 1999 Hepatitis C 2014 DTaP, Tdap and Td Vaccines ( 1 - Tdap) 2015 Hepatitis B Vaccines (1 of 3 - 19+ 3-dose series) 2015 Pneumococcal Vaccine: Pediat rics (0 to 5 Years) and At-Risk Patients (6 to 49 Years) (1 of 2 - PCV) 2015 HPV Vaccines (1 - 3-dose SCD M series) 2023 COVID-19 Vaccine (2024-2 6 season) 2025 Influenza Adult (#1) 2025 Hepatitis A Vaccines Aged Out No long er eligible based on patient's age to complete this topic Meningococcal B Vaccine Aged Out No l onger eligible based on patient's age to complete this topic Meningococcal Vaccine Aged Out No jose [place] eligible based on patient's age to complete this topic RSV Immunizations Under 20 Months Aged Out No longer eligible based on patient's age to complete this topic Insurance MEDICAID Care Teams Port Patrol Officer Relationship Specialty Start Date End Date None, Provider, PCP - General 04/25/19
--- OUTSIDE RECORDS SUMMARY | 2025-05-16 21:32 | XMS_ITS | Clinical Summary ---
Author Organization [facility] Address [address] [place] [address] Care Team Providers Care Principal Network Architect Name Role Phone No, Physician Primary Care Provider [phone] Allergies No known active allergies Medications ergocalciferol (VITAMIN D) 50,000 unit capsule Take 1 capsule by mouth every 7 days 09/18/2019 Active benzonatate (TESSALON) 100 mg capsuleIndicati ons:Cough Take 1 capsule (100 mg total) by mouth 3 (three) times a day as needed for cough 15 capsule 02/28/2022 Active albuterol HFA (PROVENTIL HFA,VENTOLIN HFA,PROAIR HFA) 90 mcg/actuation inhaler Inhale 2 puffs every 4 (four) hours as needed for wheezing for up to 7 days 1 each 07/21/2024 Active Family History Medical History Relation Name Comments Heart attack Mother Sudden Cardiac Mother Relation Name Status Comments Mother Social History Tobacco Use Types Packs/Day Years Used Date Smoking Tobacco: Never Assessed Personal Safety Answer Date Recorded Have you ever been in or are you currently in a harmful physical or emotional relationship or is someone making you feel afraid or unsafe? Denies 07/21/2024 Sex and Gender Information Value Date Recorded Sex Assigned at Not on file Legal Sex Male 9:13 PM HOUSING ASSISTANT Gender Identity Not on file Sexual Orientation Not on file Last Filed Vital Signs Vital Sign Reading Time Taken Comments Blood Pressure 122/85 07/21/2024 7:35 PM HOUSING ASSISTANT Pulse 66 07/21/2024 7:35 PM HOUSING ASSISTANT Temperature 36.8 C (98.2 F) 07/21/2024 2:06 PM HOUSING ASSISTANT Respiratory Rate 16 07/21/2024 7:35 PM HOUSING ASSISTANT Oxygen Saturation 98% 07/21/2024 7:35 PM HOUSING ASSISTANT Inhaled Oxygen Concentration - - Weight 148 kg (326 lb 4.5 oz) 02/28/2022 9:15 PM CDT Height 175.3 cm (5' 9) 02/28/2022 9:11 PM CDT Body Mass Index 48.18 02/28/2022 9:11 PM CDT Plan of Treatment Health Maintenance Due Date Last Done Comments Depression Screening 1996 Hepatitis C Screening 1996 DTaP/Tdap/Td Vaccine (1 - Tdap) 2007 Varicella Vaccines (1 of 2 - 13+ 2-dose series) 2009 Hepatitis B Screening 2014 Regular Well Visit/Exam 18-64 2014 HPV Vaccines (1 - 3-dose SCD M series) 2023 Influenza Vaccine (#1) 2025 Pneumococcal vaccine <65 Aged Out No longer eligible based on patient's age to complete this topic [place] [address] [place] [address] Care Teams Principal Network Architect Relationship Specialty Start Date End Date No, Physician PCP - General 04/26/21
--- OUTSIDE RECORDS SUMMARY | 2025-05-16 21:32 | XMS_ITS | Encounter Summary ---
Author Organization [facility] Address [address] [place] [address] Phone Care Team Providers Care Soa Engineer Name Role Phone No, Physician Primary Care Provider [phone] Encounter Details Date Type Department Care Team (Latest Contact Info) Description 02/22/2020 Orders Only [facility] Scanning, Provider Social History Tobacco Use Types Packs/Day Years Used Date Smoking Tobacco: Never Assessed Sex and Gender Information Value Date Recorded Sex Assigned at Not on file Legal Sex Male 9:13 PM REGISTERED NURSES Gender Identity Not on file Sexual Orientation Not on file documented as of this encounter Plan of Treatment Not on file documented as of this encounter Procedures Procedure Name Priority Date/Time Associated Diagnosis Comments CARDIOLOGY DOCUMENT SCAN 02/22/2020 documented in this encounter Results * SCAN - CARDIOLOGY (02/22/2020) Anatomical Region Laterality Modality Other us Provider Scanning [facility] C[facility] SERVICES PROCEDURES Final Result documented in this encounter Visit Diagnoses Not on filedocumented in this encounter Additional Health Concerns Infection Onset Date Last Indicated Resolved Time COVID: Suspected 02/28/2022 02/28/2022 02/28/2022 10:12 PM CDT COVID: Suspected 07/21/2024 07/21/2024 07/21/2024 4:15 PM REGISTERED NURSES documented as of this encounter Care Teams Soa Engineer Relationship Specialty Start Date End Date No, Physician PCP - General 04/26/21 documented as of this encounter
--- OUTSIDE RECORDS SUMMARY | 2025-05-16 21:32 | XMS_ITS | Encounter Summary ---
Author Organization [facility] Address [address] [place] [address] Phone Care Team Providers Care Medical Billing Coder Name Role Phone No, Physician Primary Care Provider [phone] Encounter Details Date Type Department Care Team (Latest Contact Info) Description 04/04/2020 Orders Only [facility] Scanning, Provider Social History Tobacco Use Types Packs/Day Years Used Date Smoking Tobacco: Never Assessed Sex and Gender Information Value Date Recorded Sex Assigned at Not on file Legal Sex Male 9:13 PM 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 Gender Identity Not on file Sexual Orientation Not on file documented as of this encounter Plan of Treatment Not on file documented as of this encounter Procedures Procedure Name Priority Date/Time Associated Diagnosis Comments CARDIOLOGY DOCUMENT SCAN 04/04/2020 documented in this encounter Results * SCAN - CARDIOLOGY (04/04/2020) Anatomical Region Laterality Modality Other us Provider Scanning CV CARDIAC SERVICES PROCEDURES Final Result documented in this encounter Visit Diagnoses Not on filedocumented in this encounter Additional Health Concerns Infection Onset Date Last Indicated Resolved Time COVID: Suspected 02/28/2022 02/28/2022 02/28/2022 10:12 PM CDT COVID: Suspected 07/21/2024 07/21/2024 07/21/2024 4:15 PM HOME 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 documented as of this encounter Care Teams Medical Billing Coder Relationship Specialty Start Date End Date No, Physician PCP - General 04/26/21 documented as of this encounter
[2025-05-16 21:37] LABS: Hemoglobin A1C 10.0 % (<5.7)
[2025-05-16 21:40] LABS: Beta-Hydroxybutyrate/Acetoace. 5.16 mmol/L (0.02-0.27)
[2025-05-16 21:43] LABS: Troponin I < 0.012 ng/mL (0.000-0.034)
[2025-05-16 21:52] LABS: Influenza A QL RT-PCR Negative (Negative); Influenza B QL RT-PCR Negative (Negative); RSV RNA, RT-PCR Negative (Negative); SARS-CoV-2 RNA PCR Negative (Negative)
[2025-05-16 22:04] LABS: Thyroid Stimulating Hormone Reflex 2.160 uIU/mL (0.465-4.68)
[2025-05-16 22:29] LABS: Add Urine Microscopic? YES; Appearance Urine Clear (Clear); Glucose Urine UA 3+ mg/dL (Negative); Leukocyte Esterase Ur Negative LEU/UL (Negative); Nitrate Urine Negative (Negative); Specific Grav Ur 1.041 (1.001-1.035)
[2025-05-16 22:30] LABS: Fractional Inspired Oxygen 21 %; HCO3 VBG 11.5 mEq/l (24.0-30.0); PCO2 VBG 32.4 mmHg (42.0-48.0); PO2 VBG 31.6 mmHg (35.0-45.0)
[2025-05-16 22:35] LABS: pH VBG 7.167 (7.300-7.400)
[2025-05-16 22:48] LABS: Cannabinoid Screen Urine Negative (Negative)
[2025-05-16] MEDS: KCL 20 MEQ/D5/0.45% SOD CHL 1,000 ML 150 ML IV CONT (22:50)
[2025-05-16] MEDS: INSULIN HUMAN REGULAR (*BKC) 100 UNITS in SODIUM CHLORIDE 0.9% IV 99 ML 13.88 UNITS IV CONT (22:50)
[2025-05-16 23:04] VITALS: BP 126/75; PULSE 107; RESP 22; O2SAT 99
--- NOTE | 2025-05-16 23:09 | WPCEDHO ---
ED Hand Off Checklist All vitals saved:yes IV Site documented:yes All med administrations documented:yes Triage Note Triage Note Pt to the ED with C/O nausea and 05/16/25 20:30 vomiting since Wednesday. Pt states he is unable to tolerate any PO intake. Pt has not had a bowel movement since Wednesday when symptoms started. Allergies No Known Allergies Allergy (Verified 05/16/25 20:25) Active Medications including assessments/comments Potassium Chloride/Dextrose/Sod Cl (Kcl 20 Meq/D5/0.45% Sod Chl) 1,000 mls @ 150 mls/hr IV CONT .Q6H40M [facility] Last Admin: 05/16/25 22:50 Dose: 150 mls/hr Documented By: SAIRA Infusion/Titration Document 05/16/25 22:50 LLG (Rec: 05/16/25 22:53 LLG [id number]) Intake IV Site Peripheral Access Right Forearm Container Volume 1,000 Waste Amount 0 Dosing Infusion Rate 150 Cumulative Dose Not Applicable Increase/Decrease Started Elapsed Time Elapsed Time ( 0m minutes) Insulin Human Regular 100 (units/ Sodium Chloride) 100 mls @ 13.88 mls/hr IV CONT .Q7H13M [facility]; Protocol Last Admin: 05/16/25 22:50 Dose: 13.88 units/hr, 13.88 mls/hr Documented By: SAIRA Co-signed By: TARA Infusion/Titration Document 05/16/25 22:50 LLG (Rec: 05/16/25 22:53 LLG [id number]) Co-signed By Laura Kemp RN Intake IV Site Peripheral Access Left Antecubital Container Volume 100 Waste Amount 0 Dosing Dose Rate 13.88 Infusion Rate 13.88 Increase/Decrease Started Elapsed Time Elapsed Time ( 0m minutes) MAR IV Insulin Pump Document 05/16/25 22:50 LLG (Rec: 05/16/25 22:53 LLG [id number]) Co-signed By Laura Kemp RN [facility] IV Insulin Pump Patient Has an No Insulin Pump MAR IV Insulin Document 05/16/25 22:50 LLG (Rec: 05/16/25 22:53 LLG [id number]) Co-signed By Laura Kemp RN Reason for Administration IV Insulin Infusion DKA Protocol - Reason for Administration Blood Glucose Random Glucose Yes Ordered IV Insulin Action/Checks IV Insulin Action Initiated Administered/Completed Medications Discontinued Medications Sodium Chloride (Normal Saline Iv) 1,000 mls @ 999 mls/hr IV CONT .Q1H1M STA Stop: 05/16/25 21:50 Last Infusion: 05/16/25 22:25 Dose: Infused Documented By: Admin: 05/16/25 21:00 Dose: 999 mls/hr Documented By: SAIRA Sodium Chloride (Normal Saline Iv) 1,000 mls @ 999 mls/hr IV CONT .Q1H1M STA Stop: 05/16/25 21:51 Last Infusion: 05/16/25 22:25 Dose: Infused Documented By: Admin: 05/16/25 21:00 Dose: 999 mls/hr Documented By: SAIRA Sodium Chloride (Normal Saline Iv) 1,000 mls @ 999 mls/hr IV CONT .Q1H1M STA Stop: 05/16/25 22:51 Last Admin: 05/16/25 22:30 Dose: 999 mls/hr Documented By: DAGO Ondansetron HCl (Ondansetron Inj 4 Mg/2 Ml Vial) 4 mg IV PUSH ONCE STA Stop: 05/16/25 20:51 Last Admin: 05/16/25 21:01 Dose: 4 mg Documented By: SAIRA Pantoprazole Sodium (Pantoprazole Sodium Iv 40 Mg Vial) 40 mg IV PUSH ONCE STA Stop: 05/16/25 20:51 Last Admin: 05/16/25 21:01 Dose: 40 mg Documented By: SAIRA Interventions/Assessments IV / Saline Lock, Insert Start: 05/16/25 20:38 Freq: STAT Status: Active Protocol: Document 05/16/25 22:25 HNK (Rec: 05/16/25 22:25 HNK [id number]) IV Assessment Peripheral Access Right Forearm IV Catheter Access Initiated IV Insertion Date 05/16/25 IV Insertion Time 22:25 Catheter Gauge 18 IV Insertion 1 Attempts Ultrasound Used for Yes Placement IV Site Assessment WNL IV Care and WNL Maintenance PA: Gastrointestinal Assessment Start: 05/16/25 20:25 Freq: Status: Active Protocol: Document 05/16/25 20:30 LLG (Rec: 05/16/25 20:37 LLG [id number]) GI Assessment Gastrointestinal Nausea,Pain,Vomiting Symptoms Description Distended,Firm Pattern Constipated Nausea/Vomiting Assessment Nausea Frequency Intermittent Emesis Frequency Intermittent Last Vital Signs Temperature 98 F 05/16/25 20:30 Pulse Rate 107 H 05/16/25 23:04 Respiratory Rate 22 H 05/16/25 23:04 Pulse Oximetry 99 05/16/25 23:04 Blood Pressure 126/75 05/16/25 23:04 Blood Pressure Mean 92 05/16/25 23:04 Oxygen Delivery Room Air 05/16/25 20:30 Weight 138.8 kg 05/16/25 20:30 Last Result - Abnormals Only MPV 12.2 fl (7.4-10.4) H 05/16/25 20:51 Immature Gran % (Auto) 0.7 % (0-0.5) H 05/16/25 20:51 Lymph % (Auto) 15.1 % (18.3-44.2) L 05/16/25 20:51 [place] % (Auto) 12.7 % (2.6-8.5) H 05/16/25 20:51 [place] # (Auto) 1.0 K/mm3 (0.1-0.6) H 05/16/25 20:51 Abs Immat Gran (auto) 0.05 K/mm3 (0.00-0.031) H 05/16/25 20:51 VBG pH 7.167 (7.300-7.400) L* 05/16/25 22:19 VBG pCO2 32.4 mmHg (42.0-48.0) L 05/16/25 22:19 VBG pO2 31.6 mmHg (35.0-45.0) L 05/16/25 22:19 VBG HCO3 11.5 mEq/l (24.0-30.0) L 05/16/25 22:19 Sodium 128 mmol/L (137-145) L 05/16/25 20:51 Carbon Dioxide < 5 mmol/L (22-30) L 05/16/25 20:51 Glucose 622 mg/dL (65-110) H* 05/16/25 20:51 POC Capillary Glucose 446 mg/dl (65-105) H 05/16/25 22:50 Hemoglobin A1c 10.0 % (<5.7) H 05/16/25 20:51 ALT 83 U/L (6-50) H 05/16/25 20:51 Lipase 1016 U/L (23-300) H 05/16/25 20:51 Beta-Hydroxybutyrate/Acetoacetate 5.16 mmol/L (0.02-0.27) H 05/16/25 20:51 Ur Specific [place] 1.041 (1.001-1.035) H 05/16/25 22:19 Urine Protein 1+ mg/dL (Negative) H 05/16/25 22:19 Urine Glucose (UA) 3+ mg/dL (Negative) H 05/16/25 22:19 Urine Ketones 4+ mg/dL (Negative) H 05/16/25 22:19 Ur Blood (Man) 1+ (Negative) H 05/16/25 22:19 Most Recent Suicide Severity Rating Suicide Severity Rating NO RISK INDICATED 05/16/25 20:30
[2025-05-16 23:40] LABS: MRSA (PCR) NOT DETECTED (NOT DETECTE)
[2025-05-16] MEDS: SODIUM CHLORIDE 0.9% IV 1,000 ML 150 ML IV CONT (23:50)
[2025-05-16 23:53] VITALS: BMI 46.3
--- NOTE | 2025-05-16 23:56 | ADMGEN ---
This patient, Shaun Neville, was admitted to Intensive Care Unit-1. Patient/family oriented to hospital policies and general routines including ID bracelet, bed and alarms, visiting hours, pain management, procedures, bathroom and other care routines, personal items, smoking policy, room service/diet, and visiting hours. Information on how to activate the Rapid Response Team has been discussed. Patient/Family are encouraged to report perceived risks to care and to ask questions if they do not understand what they are told or what they should do.
[2025-05-17] VITALS (25 sets, daily range): BP systolic 103–148; BP diastolic 53–80; PULSE 95–111; RESP 10–33; TEMP 36.6–36.9; O2SAT 92–100
[2025-05-17 01:40] LABS: Anion Gap 19 mmol/L (4-12); Blood Urea Nitrogen 12 mg/dL (9-20); Calcium 8.8 mg/dL (8.4-10.2); Carbon Dioxide 10 mmol/L (22-30); Chloride 110 mmol/L (98-107); Estimated CRCL calculation 116 ml/min; Estimated Glomerular Filt Rate > 60; Glucose 221 mg/dL (65-110); Potassium 4.0 mmol/L (3.4-5.0); Sodium 139 mmol/L (137-145)
[2025-05-17 01:52] LABS: Troponin I < 0.012 ng/mL (0.000-0.034)
[2025-05-17 05:49] LABS: Anion Gap 13 mmol/L (4-12); Blood Urea Nitrogen 11 mg/dL (9-20); Calcium 8.6 mg/dL (8.4-10.2); Carbon Dioxide 11 mmol/L (22-30); Chloride 112 mmol/L (98-107); Estimated CRCL calculation 129 ml/min; Estimated Glomerular Filt Rate > 60; Glucose 171 mg/dL (65-110); Potassium 4.4 mmol/L (3.4-5.0); Sodium 136 mmol/L (137-145)
--- NOTE | 2025-05-17 05:56 | PM.IMHP2 ---
H&P: HPI History of Present Illness Date/Time: 05/17/25 05:56 Chief Complaint: Nausea and vomiting Narrative: A pleasant 30-year-old male with PMH obesity class 3, acid reflux presents with 3 days of nausea and vomiting with a few weeks of increased urinary frequency proceeding. Your evaluation reveals sinus tachycardia, tachypnea. VBG pH 7.167, sodium 128, carbon dioxide less than 5, high anion gap metabolic acidosis, blood sugar 622, hemoglobin A1c 10.0, ALT 83, troponin negative, beta hydroxybutyrate 5.16. Patient given 3 L normal saline, Protonix and Zofran. Reports symptomatic improvement. Started on insulin with fluids within the DKA protocol. Transferred to ICU. Review of Systems Review of Systems: All systems reviewed & are unremarkable except as noted in HPI and below (Subjective) [facility] Past Medical History Medical History (Updated 05/17/25 @ 05:59 by Latanya Darby MD) DKA (diabetic ketoacidosis) Acid reflux Family History Family History (Updated 05/16/25 @ 23:58 by Zayda Baig RN) Mother Myocardial infarct Social History Social History Smoking status: Never smoker Alcohol intake: current Drinks per week: 3 Substance use: never Lack of Transportation: No Lack of Food: Never True Current Housing: I Have Housing Concerned About Future Housing: No Difficulty Paying Gas/Electric Bills: No Difficulty Paying for Meds: No Currently Unemployed: No Education: High School Diploma/GED Difficulty w/ Childcare or Family Care: No Spiritual care concerns: No Meds Home Medications and Allergies Home Medications ?Medication ?Instructions ?Recorded ?Confirmed ?Type No Home Medications 05/17/25 05/17/25 History Allergies Allergy/AdvReac Type Severity Reaction Status Date / Time No Known Allergies Allergy Verified 05/17/25 00:03 Vital Signs Vital Signs - 24 hr 05/16/25 20:30 05/16/25 23:04 05/17/25 00:00 Temperature 98 F Pulse Rate 121 H 107 H Respiratory Rate 24 H 22 H Blood Pressure 149/97 H 126/75 Pulse Oximetry 96 99 Oxygen Delivery Room Air Room Air 05/17/25 00:00 05/17/25 00:00 05/17/25 01:00 Temperature 98.2 F Pulse Rate 110 H 111 H 108 H Respiratory Rate 26 H 29 H Blood Pressure 128/78 120/63 Pulse Oximetry 99 97 Oxygen Delivery 05/17/25 02:00 05/17/25 02:00 05/17/25 03:00 Temperature 98.4 F Pulse Rate 111 H 111 H 107 H Respiratory Rate 32 H 30 H Blood Pressure 143/76 H 124/68 Pulse Oximetry 100 99 Oxygen Delivery 05/17/25 04:00 05/17/25 04:00 05/17/25 05:00 Temperature 98.2 F Pulse Rate 106 H 102 H Respiratory Rate 26 H 30 H Blood Pressure 130/79 117/55 L Pulse Oximetry 98 97 Oxygen Delivery Room Air Exam Const: General: comfortable and no acute distress HENMT: Mouth: Yes dry mucous membranes Eyes: Pupils: Equal, round and reactive pupils present Resp: Effort & Inspection: normal respiratory effort Auscultation: clear to auscultation bilaterally Cardio: Rate: regular rate Rhythm: regular rhythm Heart sounds: no gallops and no murmurs GI: Inspection: non-distended GI Palp: Yes Soft to palpation and No Tenderness to palpation present (GI) : General: Yes bladder normal to palpation Neuro: Motor exam (neuro): 5/5 motor strength present throughout Extrem: General: no edema Results Labs Labs: Short CBC 05/16/25 Range/Units 20:51 WBC 7.6 (4.5-10.0) K/mm3 Hgb 16.9 (14.0-18.0) g/dL Hct 49.7 (42.0-52.0) % Plt Count 195 (150-375) k/mm3 [facility] 05/16/25 05/17/25 05/17/25 20:51 01:22 05:32 Sodium 128 L 139 136 L Potassium 4.5 4.0 4.4 Chloride 101 110 H 112 H Carbon Dioxide < 5 L 10 L 11 L BUN 14 12 11 Creatinine 1.28 1.18 1.05 Glucose 622 H* 221 H 171 H Calcium 9.3 8.8 8.6 Cardiac Enzymes 05/16/25 05/17/25 Range/Units 20:51 01:22 Troponin I < 0.012 < 0.012 (0.000-0.034) ng/mL Liver Function 05/16/25 Range/Units 20:51 Total Bilirubin 1.2 (0.2-1.3) mg/dL AST 37 (17-59) U/L ALT 83 H (6-50) U/L Alkaline Phosphatase 110 (38-126) U/L Albumin 5.0 (3.5-5.1) g/dL Urine 05/16/25 Range/Units 22:19 Urine Color Yellow (Yellow) Urine Appearance Clear (Clear) Urine pH 5.5 (5.0-9.0) Ur Specific [place] 1.041 H (1.001-1.035) Urine Protein 1+ H (Negative) mg/dL Urine Glucose (UA) 3+ H (Negative) mg/dL Assessment and Plan Assessment and plan (1) DKA (diabetic ketoacidosis): Code(s): E11.10 - Type 2 diabetes mellitus with ketoacidosis without coma Status: Acute (2) Acid reflux: Code(s): K21.9 - Gastro-esophageal reflux disease without esophagitis Status: Acute Plan Continue DKA protocol in the ICU. Pharmacy General Manager consulted. Hemodynamically stable. No evidence of underlying infectious etiology. Check zinc transporter and JANICE ab. Consult dietitian, swage toolsetter. Patient counseled on lifestyle management. Continue obesity management in the outpatient setting. Patient does not have a PCP, consult care coordination to help arrange. He has not been on any acid reflux medications, experiencing acid reflux now. Continue Protonix. Consider discharging on p.o. therapy. Lipase elevated, likely due to vomiting, CTA abdomen and pelvis demonstrates normal appearing pancreas. In addition, indeterminate 1.3 cm lesion in the right hepatic lobe, CT using hepatic protocol is recommended. Hepatic steatosis present. Full code. SCDs. NPO until ready to transition off of DKA protocol. Time Spent with Patient Time with patient: less than 45 minutes Hospitalist MIPS Advance Care Plan I have confirmed that the patient's Advanced Care Plan is present, code status is documented, or surrogate decision maker is listed in patient medical record.: Yes Medication Reconciliation I have utilized all available resources to obtain, update and review the patients current medications (includes all prescriptions, OTC, herbals, cannabis, and nutritional supplements).: Yes
[2025-05-17] MEDS: KCL 20 MEQ/D5/0.45% SOD CHL 1,000 ML 150 ML IV CONT ×3 (05:57→23:22)
[2025-05-17] MEDS: ONDANSETRON INJ 4 MG/2 ML VIAL IV PUSH (06:03)
[2025-05-17] MEDS: SODIUM CHLORIDE 0.9% IV 1,000 ML 999 ML IV CONT (07:32)
[2025-05-17 07:45] LABS: Lipase 520 U/L (23-300)
[2025-05-17] MEDS: PANTOPRAZOLE SODIUM IV 40 MG VIAL IV PUSH (08:10)
[2025-05-17] MEDS: PROCHLORPERAZINE EDISYLATE 10 MG/2 ML VIAL IV PUSH (08:16)
[2025-05-17 09:45] LABS: Anion Gap 17 mmol/L (4-12); Blood Urea Nitrogen 10 mg/dL (9-20); Calcium 8.0 mg/dL (8.4-10.2); Carbon Dioxide 9 mmol/L (22-30); Chloride 114 mmol/L (98-107); Estimated CRCL calculation 143 ml/min; Estimated Glomerular Filt Rate > 60; Glucose 263 mg/dL (65-110); Potassium 4.1 mmol/L (3.4-5.0); Sodium 140 mmol/L (137-145)
--- NOTE | 2025-05-17 11:27 | P.CONIN_ITS ---
Assessment and Plan Assessment and plan (1) DKA (diabetic ketoacidosis): Code(s): E11.10 - Type 2 diabetes mellitus with ketoacidosis without coma Status: Acute Assessment and Plan: Patient presented with nausea, vomiting, generalized weakness, polyuria, polydipsia. Was found to have blood sugars of 622 in the ER, elevated beta hydroxybutyrate, CO2 of < 5, anion gap could not be calculated -patient was diagnosed with diabetic ketoacidosis -was given 2 L IV fluid bolus in the ER, plus 1 L IV fluid bolus in the ICU upon arrival -patient still is tachycardic, CO2 is low, will given additional IV fluid bolus this morning -continue insulin infusion and IV fluids that go with it per DKA protocol -clean in places operator and dietitian has been consulted -will transition to long-acting insulin and sliding scale insulin once anion gap is closed and CO2 improves (2) Pancreatitis: Code(s): K85.90 - Acute pancreatitis without necrosis or infection, unspecified Status: Acute Assessment and Plan: Elevated lipase, -will check triglycerides and lipids with next blood draw (3) Acid reflux: Code(s): K21.9 - Gastro-esophageal reflux disease without esophagitis Status: Acute Assessment and Plan: Continue proton (4) Fatty liver: Code(s): K76.0 - Fatty (change of) liver, not elsewhere classified Status: Acute Assessment and Plan: CT scan of the abdomen and pelvis showed hepatic steatosis -checking lipid panel, patient may need to be treated if lipids are elevated Plan DVT prophylaxis: Lovenox Stress ulcer prophylaxis: Protonix Nutrition: NPO Code Status: Full code Critical Care Time Spent: 46 minutes Due to a high probability of clinically significant, life threatening deterioration, the patient required my highest level of preparedness to intervene emergently and I personally spent this critical care time directly and personally managing the patient. This critical care time included obtaining a history; examining the patient; pulse oximetry; ordering and review of studies; arranging urgent treatment with development of a management plan; evaluation of patient's response to treatment; frequent reassessment; and discussions with other providers. It was exclusive of separately billable procedures and treating other patients and teaching time. Please see Assessment and Plan section and the rest of the note for further information on patient assessment and treatment This dictation may have been done utilizing a voice recognition system. Attempts have been made to correct errors. However, there may be uncorrected grammatical, spelling, and recognitions errors present. Bag Loader Machine Operator Consult Note Consult date: 05/17/25 Reason for consult: Nausea, vomiting, hyperglycemia, diabetic ketoacidosis, possible pancreatitis HPI: Shaun Neville is a 30 year old male with past medical history of acid reflux, BC presented the ED with 3 days of nausea and vomiting, polydipsia and polyuria. In the ER patient was tachycardic, tachypneic, VBG showed a pH of 7.167, sodium of 128, CO2 of < 5, anion gap could not be calculated, blood sugars were 622, hemoglobin A1c of 10.0, beta hydroxybutyrate was 5.16, ALT 83, troponins were negative, lipase 1016 Patient was given 2 L IV fluids, started on insulin infusion and transferred to the ICU. He received 1 L of IV fluids in the ICU on admission. 05/16/2025: CT chest, abdomen, pelvis: Indeterminate 1.3 cm lesion in the right hepatic lobe. Follow-up CT using hepatic protocol is recommended. Hepatic steatosis. Patient seen examined the ICU, is awake, alert, oriented, nonfocal, had some nausea early this morning, denies any abdominal pain, shortness of breath, chest pain. Remains on insulin infusion per DKA protocol anion gap is 17, CO2 level of 9. Urine output has been adequate, creatinine is stable, lipase is down to 520. Hemodynamically stable, afebrile. Patient denies any alcohol, illicit drug use or tobacco use. 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 Review of Systems 2 Review of Systems: All systems reviewed & are unremarkable except as noted in HPI and below [facility] Past Medical History Medical History (Updated 05/17/25 @ 05:59 by Latanya Darby MD) DKA (diabetic ketoacidosis) Acid reflux Family History Family History (Updated 05/16/25 @ 23:58 by Zayda Baig RN) Mother Myocardial infarct Social History Social History Smoking status: Never smoker Alcohol intake: current Drinks per week: 3 Substance use: never Lack of Transportation: No Lack of Food: Never True Current Housing: I Have Housing Concerned About Future Housing: No Difficulty Paying Gas/Electric Bills: No Difficulty Paying for Meds: No Currently Unemployed: No Education: High School Diploma/GED Difficulty w/ Childcare or Family Care: No Spiritual care concerns: No Meds Home Medications and Allergies Home Medications ?Medication ?Instructions ?Recorded ?Confirmed ?Type No Home Medications 05/17/25 05/17/25 H istory Allergies Allergy/AdvReac Type Severity Reaction Status Date / Time No Known Allergies Allergy Verified 05/17/25 00:03 Vital Signs Vital Signs - 24 hr 05/16/25 20:30 05/16/25 23:04 05/17/25 00:00 Temperature 98 F Pulse Rate 121 H 107 H Respiratory Rate 24 H 22 H Blood Pressure 149/97 H 126/75 Pulse Oximetry 96 99 Oxygen Delivery Room Air Room Air 05/17/25 00:00 05/17/25 00:00 05/17/25 01:00 Temperature 98.2 F Pulse Rate 110 H 111 H 108 H Respiratory Rate 26 H 29 H Blood Pressure 128/78 120/63 Pulse Oximetry 99 97 Oxygen Delivery 05/17/25 02:00 05/17/25 02:00 05/17/25 03:00 Temperature 98.4 F Pulse Rate 111 H 111 H 107 H Respiratory Rate 32 H 30 H Blood Pressure 143/76 H 124/68 Pulse Oximetry 100 99 Oxygen Delivery 05/17/25 04:00 05/17/25 04:00 05/17/25 04:00 Temperature Pulse Rate 106 H 106 H Respiratory Rate 26 H Blood Pressure 130/79 Pulse Oximetry 98 Oxygen Delivery Room Air 05/17/25 05:00 05/17/25 06:00 05/17/25 06:00 Temperature 98.2 F 98.4 F Pulse Rate 102 H 97 97 Respiratory Rate 30 H 24 H Blood Pressure 117/55 L 112/59 L Pulse Oximetry 97 99 Oxygen Delivery 05/17/25 07:00 05/17/25 08:00 05/17/25 08:00 Temperature 98 F Pulse Rate 99 104 H Respiratory Rate 26 H 14 Blood Pressure 119/63 148/80 H Pulse Oximetry 97 99 Oxygen Delivery Room Air 05/17/25 08:00 05/17/25 09:00 05/17/25 10:00 Temperature 98.3 F Pulse Rate 98 98 103 H Respiratory Rate 30 H 27 H Blood Pressure 123/62 125/53 L Pulse Oximetry 98 97 Oxygen Delivery 05/17/25 10:00 05/17/25 11:00 Temperature Pulse Rate 104 H 108 H Respiratory Rate 23 H Blood Pressure 124/56 L Pulse Oximetry 99 Oxygen Delivery Exam 2 Narrative: General: Pleasant young gentleman in no acute distress HEENT:? Pupils equal and reactive, sclera is clear Neck:? Thick neck Respiratory:? Clear to auscultation bilaterally, no wheezes Cardiac:? S1-S2 is normal, tachycardia Abdomen:? Soft, nontender, nondistended, obese, normoactive bowel sound Extremities:? No edema, patient does not want take off his shoes Neuro:? Patient is awake, alert, oriented, nonfocal Skin:? Dry skin Psych:? Normal mentation and affect Results Labs 05/16/25 20:51 05/17/25 09:23 Labs: Short CBC 05/16/25 Range/Units 20:51 WBC 7.6 (4.5-10.0) K/mm3 Hgb 16.9 (14.0-18.0) g/dL Hct 49.7 (42.0-52.0) % Plt Count 195 (150-375) k/mm3 BMP 05/16/25 05/17/25 05/17/25 20:51 01:22 05:32 Sodium 128 L 139 136 L Potassium 4.5 4.0 4.4 Chloride 101 110 H 112 H Carbon Dioxide < 5 L 10 L 11 L BUN 14 12 11 Creatinine 1.28 1.18 1.05 Glucose 622 H* 221 H 171 H Calcium 9.3 8.8 8.6 05/17/25 09:23 Sodium 140 Potassium 4.1 Chloride 114 H Carbon Dioxide 9 L BUN 10 Creatinine 0.94 Glucose 263 H Calcium 8.0 L Cardiac Enzymes 05/16/25 05/17/25 Range/Units 20:51 01:22 Troponin I < 0.012 < 0.012 (0.000-0.034) ng/mL Liver Function 05/16/25 Range/Units 20:51 Total Bilirubin 1.2 (0.2-1.3) mg/dL AST 37 (17-59) U/L ALT 83 H (6-50) U/L Alkaline Phosphatase 110 (38-126) U/L Albumin 5.0 (3.5-5.1) g/dL Urine 05/16/25 Range/Units 22:19 Urine Color Yellow (Yellow) Urine Appearance Clear (Clear) Urine pH 5.5 (5.0-9.0) Ur Specific [place] 1.041 H (1.001-1.035) Urine Protein 1+ H (Negative) mg/dL Urine Glucose (UA) 3+ H (Negative) mg/dL Quality VTE Prophylaxis VTE prophylaxis: pharmacologic ordered Hospitalist MIPS Advance Care Plan I have confirmed that the patient's Advanced Care Plan is present, code status is documented, or surrogate decision maker is listed in patient medical record.: Yes Medication Reconciliation I have utilized all available resources to obtain, update and review the patients current medications (includes all prescriptions, OTC, herbals, cannabis, and nutritional supplements).: Yes
[2025-05-17] MEDS: ENOXAPARIN 40 MG/0.4 ML SYRINGE SUB-Q (12:08)
[2025-05-17] MEDS: INSULIN HUMAN REGULAR (*BKC) 100 UNITS in SODIUM CHLORIDE 0.9% IV 99 ML IV CONT (13:22)
[2025-05-17 14:17] LABS: Anion Gap 10 mmol/L (4-12); Blood Urea Nitrogen 10 mg/dL (9-20); Calcium 8.3 mg/dL (8.4-10.2); Carbon Dioxide 12 mmol/L (22-30); Chloride 114 mmol/L (98-107); Estimated CRCL calculation 135 ml/min; Estimated Glomerular Filt Rate > 60; Glucose 210 mg/dL (65-110); Potassium 3.6 mmol/L (3.4-5.0); Sodium 136 mmol/L (137-145)
[2025-05-17 16:05] LABS: Cholesterol 237 mg/dL (0-200); HDL Direct 34 mg/dL; Triglycerides 85 mg/dL (<150)
[2025-05-17 18:50] LABS: Anion Gap 10 mmol/L (4-12); Blood Urea Nitrogen 9 mg/dL (9-20); Calcium 8.2 mg/dL (8.4-10.2); Carbon Dioxide 12 mmol/L (22-30); Chloride 113 mmol/L (98-107); Estimated CRCL calculation 140 ml/min; Estimated Glomerular Filt Rate > 60; Glucose 214 mg/dL (65-110); Potassium 3.5 mmol/L (3.4-5.0); Sodium 135 mmol/L (137-145)
[2025-05-17] MEDS: POTASSIUM CHLORIDE 20 MEQ ER TABLET 60 MEQ PO (21:19)
[2025-05-18] VITALS (15 sets, daily range): BP systolic 109–137; BP diastolic 62–76; PULSE 85–108; RESP 14–38; TEMP 36.6–37; O2SAT 94–100; BMI 46.1
[2025-05-18 04:44] LABS: Hematocrit 40.8 % (42.0-52.0); Hemoglobin 13.8 g/dL (14.0-18.0); Immature Granulocyte Percent A 0.4 % (0-0.5); Immature Platelet Fraction Pct 6.9 % (0.9-11.2); Lymphocytes Absolute Auto 1.60 K/mm3 (0.9-3.2); Mean Corpuscular HGB Conc 33.8 g/dl (32-36); Mean Corpuscular Hemoglobin 30.5 pg (26-34); Mean Corpuscular Volume 90.1 fl (80-100); Nucleated Red Blood Cells Absolute Auto 0.000 K/mm3 (0.0-0.012); Nucleated Red Blood Cells Perc 0.0 % (0.0-0.2); Platelet Count Result 138 k/mm3 (150-375); Red Blood Count 4.53 M/mm3 (4.6-6.20); White Blood Count 5.1 K/mm3 (4.5-10.0)
[2025-05-18 04:56] LABS: Alanine Aminotransferase 71 U/L (6-50); Albumin Level 3.3 g/dL (3.5-5.1); Alkaline Phosphatase 76 U/L (38-126); Anion Gap 6 mmol/L (4-12); Aspartate Amino Transferase 57 U/L (17-59); Bilirubin,Total 1.1 mg/dL (0.2-1.3); Blood Urea Nitrogen 8 mg/dL (9-20); Calcium 8.3 mg/dL (8.4-10.2); Carbon Dioxide 16 mmol/L (22-30); Chloride 113 mmol/L (98-107); Estimated CRCL calculation 151 ml/min; Estimated Glomerular Filt Rate > 60; Glucose 206 mg/dL (65-110); Lipase 487 U/L (23-300); Magnesium 2.0 mg/dL (1.6-2.3); Potassium 3.4 mmol/L (3.4-5.0); Sodium 135 mmol/L (137-145); Total Protein 5.9 g/dL (6.3-8.2)
[2025-05-18] MEDS: ENOXAPARIN 40 MG/0.4 ML SYRINGE SUB-Q (07:47)
[2025-05-18] MEDS: INSULIN GLARGINE (*BKC) 100 UNITS/ML 30 UNITS SUB-Q (07:47)
[2025-05-18] MEDS: POTASSIUM CHLORIDE 20 MEQ ER TABLET 40 MEQ PO (07:47)
[2025-05-18] MEDS: PANTOPRAZOLE SODIUM IV 40 MG VIAL IV PUSH (07:47)
[2025-05-18] MEDS: KCL 20 MEQ/D5/0.45% SOD CHL 1,000 ML 150 ML IV CONT (08:10)
[2025-05-18] MEDS: INSULIN ASPART (*BKC) 100 UNITS/ML SUB-Q ×3 (11:36→20:55)
--- NOTE | 2025-05-18 11:39 | WPDINTPN2 ---
Assessment and Plan Assessment and Plan (1) DKA (diabetic ketoacidosis): Code(s): E11.10 - Type 2 diabetes mellitus with ketoacidosis without coma Status: Acute Assessment and Plan: Patient presented with nausea, vomiting, generalized weakness, polyuria, polydipsia. Was found to have blood sugars of 622 in the ER, elevated beta hydroxybutyrate, CO2 of < 5, anion gap could not be calculated -patient was diagnosed with diabetic ketoacidosis -was given 2 L IV fluid bolus in the ER, plus 1 L IV fluid bolus in the ICU upon arrival -patient still is tachycardic, CO2 is low, will given additional IV fluid bolus this morning -continue insulin infusion and IV fluids that go with it per DKA protocol -appreciate health educator and dietitian following the patient -05/18: also appreciate care coordination evaluation -will transition to long-acting insulin and sliding scale insulin, since his anion gap is closed on multiple occasions and CO2 is much improved. -started patient on Lantus and high-dose sliding scale along with diabetic diet (2) Pancreatitis: Code(s): K85.90 - Acute pancreatitis without necrosis or infection, unspecified Status: Acute Assessment and Plan: Elevated lipase, Lipase trending down -triglycerides 83 (3) Acid reflux: Code(s): K21.9 - Gastro-esophageal reflux disease without esophagitis Status: Acute Assessment and Plan: Continue protonix (4) Fatty liver: Code(s): K76.0 - Fatty (change of) liver, not elsewhere classified Status: Acute Assessment and Plan: CT scan of the abdomen and pelvis showed hepatic steatosis -elevated cholesterol, LDL - Will start Statin Plan DVT prophylaxis: Lovenox Stress ulcer prophylaxis: Protonix Nutrition: diabetic diet Code Status: Full code Critical Care Time Spent: 31 minutes Transfer out of the ICU Due to a high probability of clinically significant, life threatening deterioration, the patient required my highest level of preparedness to intervene emergently and I personally spent this critical care time directly and personally managing the patient. This critical care time included obtaining a history; examining the patient; pulse oximetry; ordering and review of studies; arranging urgent treatment with development of a management plan; evaluation of patient's response to treatment; frequent reassessment; and discussions with other providers. It was exclusive of separately billable procedures and treating other patients and teaching time. Please see Assessment and Plan section and the rest of the note for further information on patient assessment and treatment This dictation may have been done utilizing a voice recognition system. Attempts have been made to correct errors. However, there may be uncorrected grammatical, spelling, and recognitions errors present. Subjective Date/time seen: 05/18/25 11:39 Interval history: Reason for consult: Nausea, vomiting, hyperglycemia, diabetic ketoacidosis, possible pancreatitis 05/18/2025: Patient seen and examined the ICU, is awake, alert, states he feels much better, his anion gap is closed on multiple occasions, CO2 much improved this morning. Denies any shortness of breath, chest pain, abdominal pain, nausea, vomiting. Hemodynamically stable, adequate urine output, afebrile Review of Systems Review of Systems: All systems reviewed & are unremarkable except as noted in HPI and below Exam Narrative: General: Pleasant young gentleman in no acute distress HEENT:? Pupils equal and reactive, sclera is clear Neck:? Thick neck Respiratory:? Clear to auscultation bilaterally, no wheezes Cardiac:? S1-S2 is normal, tachycardia Abdomen:? Soft, nontender, nondistended, obese, normoactive bowel sound Extremities:? No edema, patient does not want take off his shoes Neuro:? Patient is awake, alert, oriented, nonfocal Skin:? Dry skin Psych:? Normal mentation and affect Objective Data Vital Signs Vital Signs: Vital Signs - 24 hr 05/17/25 12:00 05/17/25 12:00 05/17/25 12:00 Temperature 98.1 F Pulse Rate 108 H 108 H Respiratory Rate 27 H Blood Pressure 125/56 L Pulse Oximetry 96 Oxygen Delivery Room Air 05/17/25 13:00 05/17/25 14:00 05/17/25 14:00 Temperature 98.0 F Pulse Rate 102 H 99 99 Respiratory Rate 24 H 10 L Blood Pressure 140/63 130/59 L Pulse Oximetry 99 95 Oxygen Delivery 05/17/25 14:28 05/17/25 15:00 05/17/25 16:00 Temperature 98.3 F Pulse Rate 100 107 H Respiratory Rate 32 H 32 H 32 H Blood Pressure 130/67 114/55 L Pulse Oximetry 95 93 Oxygen Delivery 05/17/25 16:00 05/17/25 16:00 05/17/25 17:00 Temperature Pulse Rate 109 H 95 Respiratory Rate 28 H Blood Pressure 103/53 L Pulse Oximetry 98 Oxygen Delivery Room Air 05/17/25 18:00 05/17/25 18:00 05/17/25 19:00 Temperature Pulse Rate 102 H 102 H 95 Respiratory Rate 21 H 17 Blood Pressure 114/61 113/60 Pulse Oximetry 98 96 Oxygen Delivery 05/17/25 20:00 05/17/25 20:00 05/17/25 20:00 Temperature 98.5 F Pulse Rate 97 97 97 Respiratory Rate 20 20 Blood Pressure 113/63 Pulse Oximetry 95 95 Oxygen Delivery Room Air 05/17/25 22:00 05/17/25 22:00 05/17/25 23:00 Temperature Pulse Rate 102 H 102 H 106 H Respiratory Rate 33 H 22 H Blood Pressure 110/56 L 110/56 L Pulse Oximetry 92 94 Oxygen Delivery 05/17/25 23:41 05/18/25 00:00 05/18/25 00:00 Temperature 98.3 F Pulse Rate 106 H 97 97 Respiratory Rate 22 H 20 Blood Pressure 109/65 Pulse Oximetry 94 96 Oxygen Delivery Room Air 05/18/25 01:00 05/18/25 02:00 05/18/25 02:00 Temperature Pulse Rate 98 89 89 Respiratory Rate 23 H 24 H Blood Pressure 112/62 Pulse Oximetry 95 97 Oxygen Delivery 05/18/25 03:00 05/18/25 03:23 05/18/25 04:00 Temperature 98.1 F Pulse Rate 97 85 89 Respiratory Rate 18 20 21 H Blood Pressure 124/68 Pulse Oximetry 98 97 94 Oxygen Delivery Room Air 05/18/25 04:00 05/18/25 06:00 05/18/25 06:00 Temperature Pulse Rate 98 85 85 Respiratory Rate 20 Blood Pressure 120/76 Pulse Oximetry 97 Oxygen Delivery 05/18/25 07:00 05/18/25 08:00 05/18/25 08:00 Temperature 98.4 F Pulse Rate 97 86 89 Respiratory Rate 14 33 H Blood Pressure 120/76 110/63 Pulse Oximetry 99 100 Oxygen Delivery 05/18/25 09:00 05/18/25 10:00 05/18/25 10:00 Temperature Pulse Rate 93 100 101 H Respiratory Rate 38 H 19 Blood Pressure 110/63 113/67 Pulse Oximetry 100 100 Oxygen Delivery Intake/Output Intake/Output: Intake & Output 05/15/25 05/16/25 05/17/25 05/18/25 23:59 23:59 23:59 23:59 Intake Total 3171.8 4486.2 1346.5 Output Total 1750 675 Balance 3171.8 2736.2 671.5 Meds/Results Medications: Active Medications Generic Name Dose Route Start Last Admin Trade Name Freq PRN Reason Stop Dose Admin Dextrose 12.5 gm 05/18/25 07:12 Dextrose 50% 25 Gm/50 Ml Syringe IV PUSH PRN PRN Hypoglycemia Protocol Enoxaparin Sodium 40 mg 05/18/25 09:00 05/18/25 07:47 Enoxaparin 40 Mg/0.4 Ml Syringe SUB-Q 40 mg DAILY HUBER Administration Glucagon 1 mg 05/18/25 07:12 Glucagon For Inj 1 Mg Vial IM PRN PRN Hypoglycemia Protocol Glucose 15 gm 05/18/25 07:12 Glucose Oral Gel 15 Gm Of Glucse In 37.5 Gm Tube PO PRN PRN Hypoglycemia Protocol Dextrose/Sodium Chloride 1,000 mls @ 150 mls/hr 05/16/25 21:15 05/17/25 08:12 Dextrose 5% Sodium Chloride 0.45% IV CONT Not Given On Hold: 05/16/25 22:33 .[id number] HUBER Dextrose 1,000 mls @ 100 mls/hr 05/18/25 07:12 Dextrose 5% 1,000 Ml IVPB PRN PRN Hypoglycemia Protocol Insulin Aspart 2 - 4 units 05/18/25 21:00 Insulin Aspart (*Bkc) 100 Units/Ml SUB-Q HS HUBER Protocol Insulin Aspart 4 - 8 units 05/18/25 08:00 05/18/25 11:36 Insulin Aspart (*Bkc) 100 Units/Ml SUB-Q 5 units TIDWM HUBER Administration Protocol Insulin Glargine 30 units 05/18/25 07:15 05/18/25 07:47 Insulin Glargine (*Bkc) 100 Units/Ml SUB-Q 30 units DAILY HUBER Administration Ondansetron HCl 4 mg 05/16/25 22:19 05/17/25 06:03 Ondansetron Inj 4 Mg/2 Ml Vial IV PUSH 4 mg Q4H PRN Administration Nausea Pantoprazole Sodium 40 mg 05/17/25 09:00 05/18/25 07:47 Pantoprazole Sodium Iv 40 Mg Vial IV PUSH 40 mg QAM HUBER Administration Radiology Results: ITS Impressions Chest/Abdomen/Pelvis CTA 05/16/25 21:47 IMPRESSION: There is aortic dissection, pericardial fluid or thoracic aneurysm. No acute lung findings. Evaluation for pulmonary emboli are limited due to inadequate opacification of the pulmonary arteries. CT abdomen pel INDICATION:tachycardia, tachypnea . COMPARISON: None. TECHNIQUE: Axial images of the abdomen and pelvis were obtained following infusion of 100 mL Isovue 370. Dose optimization technique was utilized. FINDINGS: Fatty infiltration of the liver is noted. 1.3 cm lesion in the right hepatic lobe. The gallbladder is unremarkable. The pancreas and spleen are normal in appearance. The adrenal glands are symmetric in size. The kidneys demonstrate symmetric uptake and excretion of contrast. No cystic mass is evident. There is no solid mass. There is no hydronephrosis. The stomach and bowel loops are unremarkable. The appendix is normal in appearance. The bladder and rectum are normal. No free intraperitoneal fluid or air is evident. There is no significant retroperitoneal lymphadenopathy. The aorta, visceral vessels and renal arteries demonstrate normal caliber and patency. The lower thoracic and lumbar vertebrae are in normal alignment. IMPRESSION: Indeterminate 1.3 cm lesion in the right hepatic lobe. Follow-up CT using hepatic protocol is recommended. Hepatic steatosis. All CT scans at this facility are performed using low dose modulation techniques as appropriate to perform exam including the following: automated exposure control; use of iterative reconstruction technique; adjustment of the mA and/or kV according to patient size (this includes techniques or standardized protocols for targeted exams where dose is matched to indication/reason for exam). ADDENDUM: 05/16/25 2307 Correction: In the impression for the CTA chest first line should read there is no aortic dissection, pericardial fluid or thoracic aneurysm. Labs Labs: Laboratory Results - last 24 hr 05/17/25 05/17/25 05/17/25 05:32 12:03 13:01 WBC RBC Hgb Hct MCV MCH MCHC RDW Plt Count MPV Immature Gran % (Auto) Neut % (Auto) Lymph % (Auto) [place] % (Auto) Eos % (Auto) Baso % (Auto) Lymph # (Auto) [place] # (Auto) Eos # (Auto) Baso # (Auto) Abs Immat Gran (auto) Absolute Neuts (auto) Absolute Nucleated RBC Nucleated RBC % % Immature Plt Fraction Sodium Potassium Chloride Carbon Dioxide Anion Gap BUN Creatinine Estim Creat Clear Calc Estimated GFR Glucose POC Capillary Glucose 255 H 237 H Calcium Phosphorus Magnesium Total Bilirubin AST ALT Alkaline Phosphatase Total Protein Albumin Triglycerides 85 Cholesterol 237 H LDL Cholesterol Direct 162 HDL Direct 34 Lipase 05/17/25 05/17/25 05/17/25 13:34 14:09 15:16 WBC RBC Hgb Hct MCV MCH MCHC RDW Plt Count MPV Immature Gran % (Auto) Neut % (Auto) Lymph % (Auto) [place] % (Auto) Eos % (Auto) Baso % (Auto) Lymph # (Auto) [place] # (Auto) Eos # (Auto) Baso # (Auto) Abs Immat Gran (auto) Absolute Neuts (auto) Absolute Nucleated RBC Nucleated RBC % % Immature Plt Fraction Sodium 136 L Potassium 3.6 Chloride 114 H Carbon Dioxide 12 L Anion Gap 10 BUN 10 Creatinine 1.00 Estim Creat Clear Calc 135 Estimated GFR > 60 Glucose 210 H POC Capillary Glucose 228 H 248 H Calcium 8.3 L Phosphorus Magnesium Total Bilirubin AST ALT Alkaline Phosphatase Total Protein Albumin Triglycerides Cholesterol LDL Cholesterol Direct HDL Direct Lipase 05/17/25 05/17/25 05/17/25 16:16 17:08 18:03 WBC RBC Hgb Hct MCV MCH MCHC RDW Plt Count MPV Immature Gran % (Auto) Neut % (Auto) Lymph % (Auto) [place] % (Auto) Eos % (Auto) Baso % (Auto) Lymph # (Auto) [place] # (Auto) Eos # (Auto) Baso # (Auto) Abs Immat Gran (auto) Absolute Neuts (auto) Absolute Nucleated RBC Nucleated RBC % % Immature Plt Fraction Sodium Potassium Chloride Carbon Dioxide Anion Gap BUN Creatinine Estim Creat Clear Calc Estimated GFR Glucose POC Capillary Glucose 242 H 217 H 229 H Calcium Phosphorus Magnesium Total Bilirubin AST ALT Alkaline Phosphatase Total Protein Albumin Triglycerides Cholesterol LDL Cholesterol Direct HDL Direct Lipase 05/17/25 05/17/25 05/17/25 18:32 20:13 21:21 WBC RBC Hgb Hct MCV MCH MCHC RDW Plt Count MPV Immature Gran % (Auto) Neut % (Auto) Lymph % (Auto) [place] % (Auto) Eos % (Auto) Baso % (Auto) Lymph # (Auto) [place] # (Auto) Eos # (Auto) Baso # (Auto) Abs Immat Gran (auto) Absolute Neuts (auto) Absolute Nucleated RBC Nucleated RBC % % Immature Plt Fraction Sodium 135 L Potassium 3.5 Chloride 113 H Carbon Dioxide 12 L Anion Gap 10 BUN 9 Creatinine 0.96 Estim Creat Clear Calc 140 Estimated GFR > 60 Glucose 214 H POC Capillary Glucose 213 H 231 H Calcium 8.2 L Phosphorus Magnesium Total Bilirubin AST ALT Alkaline Phosphatase Total Protein Albumin Triglycerides Cholesterol LDL Cholesterol Direct HDL Direct Lipase 05/17/25 05/18/25 05/18/25 22:56 00:03 01:02 WBC RBC Hgb Hct MCV MCH MCHC RDW Plt Count MPV Immature Gran % (Auto) Neut % (Auto) Lymph % (Auto) [place] % (Auto) Eos % (Auto) Baso % (Auto) Lymph # (Auto) [place] # (Auto) Eos # (Auto) Baso # (Auto) Abs Immat Gran (auto) Absolute Neuts (auto) Absolute Nucleated RBC Nucleated RBC % % Immature Plt Fraction Sodium Potassium Chloride Carbon Dioxide Anion Gap BUN Creatinine Estim Creat Clear Calc Estimated GFR Glucose POC Capillary Glucose 237 H 258 H 250 H Calcium Phosphorus Magnesium Total Bilirubin AST ALT Alkaline Phosphatase Total Protein Albumin Triglycerides Cholesterol LDL Cholesterol Direct HDL Direct Lipase 05/18/25 05/18/25 05/18/25 02:04 03:03 04:13 WBC RBC Hgb Hct MCV MCH MCHC RDW Plt Count MPV Immature Gran % (Auto) Neut % (Auto) Lymph % (Auto) [place] % (Auto) Eos % (Auto) Baso % (Auto) Lymph # (Auto) [place] # (Auto) Eos # (Auto) Baso # (Auto) Abs Immat Gran (auto) Absolute Neuts (auto) Absolute Nucleated RBC Nucleated RBC % % Immature Plt Fraction Sodium Potassium Chloride Carbon Dioxide Anion Gap BUN Creatinine Estim Creat Clear Calc Estimated GFR Glucose POC Capillary Glucose 227 H 215 H 218 H Calcium Phosphorus Magnesium Total Bilirubin AST ALT Alkaline Phosphatase Total Protein Albumin Triglycerides Cholesterol LDL Cholesterol Direct HDL Direct Lipase 05/18/25 05/18/25 05/18/25 04:37 05:08 06:49 WBC 5.1 RBC 4.53 L Hgb 13.8 L D Hct 40.8 L MCV 90.1 MCH 30.5 MCHC 33.8 RDW 14.2 Plt Count 138 L MPV 11.0 H Immature Gran % (Auto) 0.4 Neut % (Auto) 49.5 Lymph % (Auto) 31.6 [place] % (Auto) 17.9 H Eos % (Auto) 0.2 Baso % (Auto) 0.4 Lymph # (Auto) 1.60 [place] # (Auto) 0.9 H Eos # (Auto) 0.0 Baso # (Auto) 0.0 Abs Immat Gran (auto) 0.02 Absolute Neuts (auto) 2.5 Absolute Nucleated RBC 0.000 Nucleated RBC % 0.0 % Immature Plt Fraction 6.9 Sodium 135 L Potassium 3.4 Chloride 113 H Carbon Dioxide 16 L Anion Gap 6 BUN 8 L Creatinine 0.89 Estim Creat Clear Calc 151 Estimated GFR > 60 Glucose 206 H POC Capillary Glucose 210 H 177 H Calcium 8.3 L Phosphorus < 1.0 L Magnesium 2.0 Total Bilirubin 1.1 AST 57 ALT 71 H Alkaline Phosphatase 76 Total Protein 5.9 L Albumin 3.3 L Triglycerides Cholesterol LDL Cholesterol Direct HDL Direct Lipase 487 H 05/18/25 05/18/25 05/18/25 07:15 07:58 08:57 WBC RBC Hgb Hct MCV MCH MCHC RDW Plt Count MPV Immature Gran % (Auto) Neut % (Auto) Lymph % (Auto) [place] % (Auto) Eos % (Auto) Baso % (Auto) Lymph # (Auto) [place] # (Auto) Eos # (Auto) Baso # (Auto) Abs Immat Gran (auto) Absolute Neuts (auto) Absolute Nucleated RBC Nucleated RBC % % Immature Plt Fraction Sodium Potassium Chloride Carbon Dioxide Anion Gap BUN Creatinine Estim Creat Clear Calc Estimated GFR Glucose POC Capillary Glucose 202 H 211 H 294 H Calcium Phosphorus Magnesium Total Bilirubin AST ALT Alkaline Phosphatase Total Protein Albumin Triglycerides Cholesterol LDL Cholesterol Direct HDL Direct Lipase 05/18/25 05/18/25 09:52 11:32 WBC RBC Hgb Hct MCV MCH MCHC RDW Plt Count MPV Immature Gran % (Auto) Neut % (Auto) Lymph % (Auto) [place] % (Auto) Eos % (Auto) Baso % (Auto) Lymph # (Auto) [place] # (Auto) Eos # (Auto) Baso # (Auto) Abs Immat Gran (auto) Absolute Neuts (auto) Absolute Nucleated RBC Nucleated RBC % % Immature Plt Fraction Sodium Potassium Chloride Carbon Dioxide Anion Gap BUN Creatinine Estim Creat Clear Calc Estimated GFR Glucose POC Capillary Glucose 277 H 268 H Calcium Phosphorus Magnesium Total Bilirubin AST ALT Alkaline Phosphatase Total Protein Albumin Triglycerides Cholesterol LDL Cholesterol Direct HDL Direct Lipase Quality VTE Prophylaxis VTE prophylaxis: pharmacologic ordered
--- NOTE | 2025-05-18 12:44 | PCFNICU ---
ICU Rounding Note: Pt current nutrition is Diabetic consistent carbs. Nutrition recommendation: No new recommendations. Continue current nutrition care plan and orders. Agree with orders Last recorded weight is 141.8 kg. Bowel Motility: Last BM 05/13 Labs Reviewed: Hgb 13.8, Hct 40.8, Na 135, K+ 3.3, BUN 8, Glu 206 Meds Noted: Insulin Skin: No skin issues Additional Notes: Pt was educated by RD yesterday and seen by batter mixer today. 100% intakes PO diet. Continue to monitor. Agree with current orders Following daily in ICU rounds. .
--- NOTE | 2025-05-18 13:43 | PC.NURSE ---
Addendum entered by José Miguel Rosario RN 05/18/25 14:03: report called at 1400 Original Note: SBAR and fax sent to [facility] surg at 1336. Called and notified floor of fax and SBAR.
--- NOTE | 2025-05-18 14:27 | PC.NURSE ---
This patient, Shaun Neville, was transferred to [facility] on 05/18/25 at 1427. Personal belongings sent with patient. Report given to Emerita. Appropriate documentation sent with patient.
[2025-05-19] VITALS: BP 111/54; PULSE 96; RESP 18; TEMP 36.6; O2SAT 98
[2025-05-19 04:00] VITALS: BP 114/65; PULSE 82; RESP 16; TEMP 36.9; O2SAT 99
[2025-05-19 06:01] LABS: Hematocrit 42.6 % (42.0-52.0); Hemoglobin 14.4 g/dL (14.0-18.0); Immature Granulocyte Percent A 0.8 % (0-0.5); Lymphocytes Absolute Auto 2.37 K/mm3 (0.9-3.2); Mean Corpuscular HGB Conc 33.8 g/dl (32-36); Mean Corpuscular Hemoglobin 30.6 pg (26-34); Mean Corpuscular Volume 90.4 fl (80-100); Nucleated Red Blood Cells Absolute Auto 0.000 K/mm3 (0.0-0.012); Nucleated Red Blood Cells Perc 0.0 % (0.0-0.2); Platelet Count Result 140 k/mm3 (150-375); Red Blood Count 4.71 M/mm3 (4.6-6.20); White Blood Count 4.9 K/mm3 (4.5-10.0)
[2025-05-19 06:24] LABS: Anion Gap 10 mmol/L (4-12); Blood Urea Nitrogen 5 mg/dL (9-20); Calcium 8.4 mg/dL (8.4-10.2); Carbon Dioxide 17 mmol/L (22-30); Chloride 107 mmol/L (98-107); Estimated CRCL calculation 172 ml/min; Estimated Glomerular Filt Rate > 60; Glucose 234 mg/dL (65-110); Lipase 659 U/L (23-300); Magnesium 2.0 mg/dL (1.6-2.3); Potassium 3.3 mmol/L (3.4-5.0); Sodium 134 mmol/L (137-145)
[2025-05-19 08:00] VITALS: BP 126/67; PULSE 94; RESP 19; TEMP 36.2; O2SAT 98
[2025-05-19] MEDS: INSULIN ASPART (*BKC) 100 UNITS/ML SUB-Q ×2 (08:21→12:02)
[2025-05-19] MEDS: ATORVASTATIN 40 MG TABLET PO (08:53)
[2025-05-19] MEDS: PANTOPRAZOLE SODIUM IV 40 MG VIAL IV PUSH (08:53)
[2025-05-19] MEDS: ENOXAPARIN 40 MG/0.4 ML SYRINGE SUB-Q (08:53)
[2025-05-19] MEDS: INSULIN GLARGINE (*BKC) 100 UNITS/ML 30 UNITS SUB-Q (08:54)
[2025-05-19] MEDS: POTASSIUM CHLORIDE 20 MEQ ER TABLET 40 MEQ PO (10:57)
[2025-05-19 12:00] VITALS: BP 121/72; PULSE 89; RESP 17; TEMP 36.4; O2SAT 96
[2025-05-19 12:08] LABS: Osmolality, Serum 305 mOsmol/kg (275-295)
[2025-05-19 12:11] LABS: Potassium 3.6 mmol/L (3.4-5.0)
--- NOTE | 2025-05-19 13:47 | PM.DS ---
DS: Admitting Diagnosis Discharge Date 05/19/25 Admitting Diagnosis DKA, new DM DS: Discharge Diagnosis Discharge Diagnosis (1) DKA (diabetic ketoacidosis): Code(s): E11.10 - Type 2 diabetes mellitus with ketoacidosis without coma Status: Acute Assessment and Plan: 05/17: Patient presented with nausea, vomiting, generalized weakness, polyuria, polydipsia. Was found to have blood sugars of 622 in the ER, elevated beta hydroxybutyrate, CO2 of < 5, anion gap could not be calculated. Hemoglobin A1c 10%. -patient was diagnosed with diabetic ketoacidosis -was given 2 L IV fluid bolus in the ER, plus 1 L IV fluid bolus in the ICU upon arrival -patient still is tachycardic, CO2 is low, will given additional IV fluid bolus this morning -insulin infusion and IV fluids that go with it per DKA protocol 05/18: Will transition to long-acting insulin and sliding scale insulin, since his anion gap is closed on multiple occasions and CO2 is much improved. -appreciate religious educator and dietitian following the patient -also appreciate care coordination evaluation -started patient on Lantus and high-dose sliding scale along with diabetic diet (2) Type 2 diabetes mellitus: Code(s): E11.9 - Type 2 diabetes mellitus without complications Status: Acute Assessment and Plan: Hemoglobin A1c 10% 05/19: On the floor, patient is improved, glucose is still averaging around 275. Current doses of insulin are 30 units glargine, 4 units aspart on average with meals with sliding scale. -noted mild hypokalemia 3.3, this was repleted and repeated, with improvement to 3.6 -Will discharge patient on insulin glargine 35 units nightly per weight and insulin aspart 5 units t.i.d. with meals -Patient is to follow-up with PCP ideally within 1 week and Endocrinology will provide information so patient can make appointment within [facility] -Resources were provided for financial assistance by personal development educator, as well as glucose monitor (3) Fatty liver: Code(s): K76.0 - Fatty (change of) liver, not elsewhere classified Status: Acute Assessment and Plan: CT abdomen 05/16: Fatty infiltration of the liver is noted. 1.3 cm lesion in the right hepatic lobe. -atorvastatin 40 mg started -outpatient follow up recommended (4) Elevated lipase: Code(s): R74.8 - Abnormal levels of other serum enzymes Status: Acute Assessment and Plan: Elevated lipase on admission, while still elevated, patient denies any kind of abdominal pain at any point during hospitalization or prior 2. Very low suspicion patient had acute pancreatitis given clinical history, and no pancreatitis on imaging. Elevations in lipase can occur with both diabetes and diabetic ketoacidosis. DS: Summary Hospital Course Hospital Course: Patient admitted for new diagnosis of diabetes presenting as diabetic ketoacidosis. Primary symptoms with nausea, vomiting, urinary frequency. He was tachycardic, tachypneic the ED, found to have A1c of 10%, blood sugar 622, high anion gap metabolic acidosis. He was started on insulin drip with DKA protocol and transferred to the ICU, with improvement and discontinuation of insulin drip within 1 day. During ICU stay, religious educator and dietitian were consulted, they provided patient with resources in regards to financial assistance and diabetes management. Lipase was highly elevated on admission, triglycerides normal, patient denied abdominal pain, eating well by discharge. Hepatic steatosis with mass noted in liver on CT scan. Patient advised to follow-up outpatient. He was started on a statin. Patient was transferred to floor once anion gaps were closed, and average glucose is improved to around 275. He was started on insulin glargine 30 units daily and aspart 4 to 8 units with 2-4 units sliding scale. Stable for discharge. As above, will discharge patient on 35 units glargine and 5 units aspart with meals. It was highly imperative that the patient follows up with the primary care doctor for continued management of insulin/diabetes. It is also imperative that he checks his glucose on a regular basis and logs his glucose numbers to discuss with his primary care physician. Status at Discharge Cognitive/behavioral status at discharge: Stable Time Spent with Patient Time attestation: Total time spent providing and/or coordinating discharge services: Exam Narrative: General: Pleasant young gentleman in no acute distress HEENT:? Pupils equal and reactive, sclera is clear Neck:? Thick neck Respiratory:? Clear to auscultation bilaterally, no wheezes Cardiac:? S1-S2 is normal, tachycardia Abdomen:? Soft, nontender, nondistended, obese, normoactive bowel sound Extremities:? No edema, patient does not want take off his shoes Neuro:? Patient is awake, alert, oriented, nonfocal Skin:? Dry skin Psych:? Normal mentation and affect DS: Data Data Completed and Pending Labs on day of discharge: Labs from last 24 hours 05/19/25 05/19/25 05/19/25 11:48 11:08 07:44 WBC RBC Hgb Hct MCV MCH MCHC RDW Plt Count MPV Immature Gran % (Auto) Neut % (Auto) Lymph % (Auto) Moffat % (Auto) Eos % (Auto) Baso % (Auto) Lymph # (Auto) Moffat # (Auto) Eos # (Auto) Baso # (Auto) Abs Immat Gran (auto) Absolute Neuts (auto) Absolute Nucleated RBC Nucleated RBC % Sodium Potassium 3.6 Chloride Carbon Dioxide Anion Gap BUN Creatinine Estim Creat Clear Calc Estimated GFR Glucose POC Capillary Glucose 275 H 266 H Serum Osmolality Calcium Phosphorus Magnesium Lipase 05/19/25 05/18/25 05/18/25 05:20 19:58 16:48 WBC 4.9 RBC 4.71 Hgb 14.4 Hct 42.6 MCV 90.4 MCH 30.6 MCHC 33.8 RDW 14.1 Plt Count 140 L MPV 12.2 H Immature Gran % (Auto) 0.8 H Neut % (Auto) 34.6 L Lymph % (Auto) 48.2 H Moffat % (Auto) 15.4 H Eos % (Auto) 0.4 Baso % (Auto) 0.6 Lymph # (Auto) 2.37 Moffat # (Auto) 0.8 H Eos # (Auto) 0.0 Baso # (Auto) 0.0 Abs Immat Gran (auto) 0.04 H Absolute Neuts (auto) 1.7 Absolute Nucleated RBC 0.000 Nucleated RBC % 0.0 Sodium 134 L Potassium 3.3 L Chloride 107 Carbon Dioxide 17 L Anion Gap 10 BUN 5 L Creatinine 0.77 Estim Creat Clear Calc 172 Estimated GFR > 60 Glucose 234 H POC Capillary Glucose 307 H 248 H Serum Osmolality Calcium 8.4 Phosphorus 2.4 L Magnesium 2.0 Lipase 659 H 05/16/25 22:19 WBC RBC Hgb Hct MCV MCH MCHC RDW Plt Count MPV Immature Gran % (Auto) Neut % (Auto) Lymph % (Auto) Moffat % (Auto) Eos % (Auto) Baso % (Auto) Lymph # (Auto) Moffat # (Auto) Eos # (Auto) Baso # (Auto) Abs Immat Gran (auto) Absolute Neuts (auto) Absolute Nucleated RBC Nucleated RBC % Sodium Potassium Chloride Carbon Dioxide Anion Gap BUN Creatinine Estim Creat Clear Calc Estimated GFR Glucose POC Capillary Glucose Serum Osmolality 305 H Calcium Phosphorus Magnesium Lipase Discharge Plan Discharge Attending physician on discharge: Golden Taveras Oca Consulting providers: Shruthi Espinal Discharging Clinician: Golden Taveras Oca Patient Disposition: Home Activity: as tolerated Diet: diabetic Discharge Instructions: Please make appointment to follow up with the primary care physician within at most 1 week to ensure insulin doses are optimized. Please follow instructions and recommendations made by personal development educator for nonpharmacological management of diabetes. Please also follow-up with her primary care doctor about liver findings-fatty liver and 1.3 cm mass was noted. You will be discharged on the following doses of insulin: -Insulin glargine (Lantus) 35 units once nightly -insulin aspart (NovoLog) 5 units, 3 times daily before meals Patient Instructions: Antibiotic Form, Diabetic Ketoacidosis (GEN), Foot Care for People with Diabetes (GEN), Basic Carbohydrate Counting (DC), Meal Planning with the Plate Method (GEN), Diabetes and Your Skin (GEN), Hemoglobin A1c (GEN), Diabetes and Your Mouth (GEN), What to Do if Your Blood Sugar is Low (GEN), Diabetes and Nutrition (GEN), Diabetes and Exercise (GEN) Patient Language: Macedonian Stand Alone Forms: General Discharge Information Follow-up/Referrals: [facility] [Provider Group] - 1 Week Problems: DKA (diabetic ketoacidosis) Discharge Medications: New insulin aspart U-100 [Novolog U-100 Insulin aspart] 100 unit/mL Solution 5 unit subcut TIDWM 30 Days Qty: 4.5 0RF Protocol: Insulin Corrective High-Dose Condition: glucose < 70 mg/dl Dose/Route: Follow hypoglycemia order Condition: glucose 70-200 mg/dl Dose/Route: No additional insulin Condition: glucose 201-250 mg/dl Dose/Route: 4 units sub-Q Condition: glucose 251-300 mg/dl Dose/Route: 5 units sub-Q Condition: glucose 301-350 mg/dl Dose/Route: 6 units sub-Q Condition: glucose 351-400 mg/dl Dose/Route: 8 units sub-Q Condition: glucose > 400 mg/dl Dose/Route: Call MD Protocol Text: *No Correction Dose at Bedtime* insulin glargine [Lantus U-100 Insulin] 100 unit/mL Solution 35 unit subcut DAILY 30 Days Qty: 10.5 0RF atorvastatin 40 mg Tablet 40 mg PO DAILY 30 Days Qty: 30 0RF No Action No Home Medications Date of admission: 05/18/25 10:04 Primary Care Provider: UNKNOWN,DOCTOR Admitting Provider: Latanya Darby Attending physician on admission: Latanya Darby Condition: Improved Hospitalist MIPS Heart Failure (Exclusion) Patient has history of Heart Transplant or Left Ventricular Assistive Device?: No IF YES, STOP HERE Heart Failure (Qualifier) Patient has current or prior documentation of LVEF less than or equal to 40%, or mod/servere depressed LVSF?: No IF NO, STOP HERE
[2025-05-24 15:09] LABS: GAD-65 Antibody <5.0 U/mL (0.0-5.0)
== END 2025-05-19 16:25 | disposition home or self-care (01) | DRG 420 ==
LOC: ANHED 21:56 → ANHICU 23:15 → ANH3MEDSUR 05-18 14:19
PROVIDERS: Internal Medicine; Student in an Organized Health Care Education/Training Program; Admitting Provider General Practice; Emergency Provider Student in an Organized Health Care Education/Training Program; Visit Provider Student in an Organized Health Care Education/Training Program
DX: E11.10 Type 2 diabetes mellitus with ketoacidosis without coma (principal); K85.90 Acute pancreatitis without necrosis or infection, unspecified; K21.9 Gastro-esophageal reflux disease without esophagitis; K76.0 Fatty (change of) liver, not elsewhere classified; E66.813 Obesity, class 3; Z20.822 Contact with and (suspected) exposure to COVID-19
CPT/HCPCS: 36415; 71275; 74177; 80048; 80053; 80061; 80307; 81001; 82010; 82077; 82803; 82948; 83036; 83605; 83690; 83735; 83930; 84100; 84132; 84443; 84484; 85025; 85055; 86341; 87040; 87637; 87641; 93005; 96361; 96365; 96366; 96368; 96372; 96374; 96375; 99291; A9270; G0378; J0780; J1650; J1815; J2405; J2470; J3480; J7030; Q9967